=== PATIENT | male | born 1960 | race Caucasian/White ===

== ENCOUNTER 2017-04-24 07:45 | Emergency (ER) | payer OTHER ==
[2017-04-24 08:16] VITALS: BP 106/67
--- NOTE | 2017-04-24 08:53 | RAD ---
HISTORY: Cough COMPARISONS: February 27, 2016, August 02, 2012 VIEWS: 4: Frontal dual-energy and lateral views of the chest. FINDINGS: CARDIOMEDIASTINAL SILHOUETTE: The cardiomediastinal silhouette is normal. GUERITA: The guerita are normal. PLEURA: The costophrenic angles are sharp. No pleural abnormalities are noted. LUNG PARENCHYMA: There is stable nodular density of the left midlung. The stability is consistent with benign nodule ABDOMEN: The upper abdomen is clear. There is no subphrenic gas. BONES AND SOFT TISSUES: No bone or soft tissue abnormalities are noted. OTHER: None. IMPRESSION: NO ACTIVE CARDIOPULMONARY DISEASE.
[2017-04-24] MEDS ORDERED: Albuterol/Ipratropium NEB.SOL* Albuterol 2.5 MG/Ipratropium 0.5 MG 3 ML INH ONE (09:13)
--- NOTE | 2017-04-24 09:47 | UC ---
Respiratory Complaint HPI - HPI Summary HPI Summary: 56 yo c/o cough last two weeks. Took z-behzad x 1, "didn't help." PCP (Dr Gresham ) escribed levofloxacin yesterday, took one dose. Last night coughed all night. Concerned about possible pneumonia. Had pneumonia last year - hospitalized. No hemoptysis perse. Feels like needs to cough something up. No fever / chills reported. No rash. - History of Current Complaint Chief Complaint: UCGeneralIllness Stated Complaint: URI Time Seen by Provider: 04/24/17 08:18 Hx Obtained From: Patient - Allergies/Home Medications Allergies/Adverse Reactions: Allergies Allergy/AdvReac Type Severity Reaction Status Date / Time Formaldehyde Allergy Severe Hives Verified 04/24/17 08:03 Home Medications: Home Medications Levofloxacin [Levaquin] 500 mg PO 04/24/17 [History Confirmed 04/24/17] PMH/Surg Hx/FS Hx/Imm Hx Previously Healthy: No - see hpi Other History Of: Negative For: HIV, Hepatitis B, Hepatitis C, Anticoagulant Therapy - Surgical History Surgical History: Yes Surgery Procedure, Year, and Place: LEFT KIDNEY REMOVED @ . OSTEOMYLITIS RIGHT ANKLE @ 7 yrs old. RIGHT WRIST PROXIMAL ROW CARPECTOMY-[facility]. 1980-RIGHT WRIST SURGERY-X 2. KNEE SURGERY FOR MENISCUS. LEFT shoulder ROTATOR CUFF REPAIR - Family History Known Family History: Positive: Cardiac Disease, Hypertension Negative: Diabetes - Social History Alcohol Use: Rare Substance Use Type: None Smoking Status (MU): Former Smoker Amount Used/How Often: 1/2 PPD X OFF AND ON 12-13 YEARS When Did the Patient Quit Smoking/Using Tobacco: 25 years ago - Immunization History Most Recent Influenza Vaccination: last year Most Recent Tetanus Shot: unknown Most Recent Pneumonia Vaccination: never Review of Systems Constitutional: Negative, Fatigue Skin: Negative Eyes: Negative ENT: Sore Throat, Sinus Congestion Respiratory: Cough Cardiovascular: Negative Gastrointestinal: Negative Genitourinary: Negative Motor: Negative Neurovascular: Negative Musculoskeletal: Negative Neurological: Negative Psychological: Negative Is Patient Immunocompromised?: No All Other Systems Reviewed And Are Negative: Yes Physical Exam Triage Information Reviewed: Yes Appearance: Well-Nourished Vital Signs: Initial Vital Signs Temp 98.6 F 04/24/17 08:06 Pulse 79 04/24/17 08:06 Resp 20 04/24/17 08:06 BP 106/67 04/24/17 08:06 Pulse Ox 97 04/24/17 08:06 Vital Signs Reviewed: Yes Eye Exam: Normal ENT: Positive: Pharynx normal, TM dull Neck exam: Normal Neck: Positive: Supple Respiratory Exam: Other - breath sounds equal + exp wheezing bibasilar. + rhonchi. No rtx. No rash. Respiratory: Positive: Wheezing Cardiovascular Exam: Normal Cardiovascular: Positive: RRR, No Murmur, Pulses Normal Abdominal Exam: Normal Musculoskeletal Exam: Normal Neurological Exam: Normal - grossly normal Psychological Exam: Normal - conversing easily and appropriately Skin Exam: Normal UC Diagnostic Evaluation - Laboratory O2 Sat by Pulse Oximetry: 97 Respiratory Course/Dx - Course Course Of Treatment: DuoNeb x 1. D/w pt xray report, need for f/u. (benign nodule noted). Questions as posed answered to the best of my ability. - Differential Dx/Diagnosis Provider Diagnoses: bronchitis. wheezing Discharge - Discharge Plan Condition: Improved Disposition: HOME Prescriptions: Albuterol 2.5MG/3ML (0.083%)* [Ventolin 2.5 MG/3 ML NEB.DEVAN*] 2.5 mg INH Q6H #1 box Albuterol HFA INHALER* [Ventolin HFA Inhaler*] 1 - 2 puff INH Q4H PRN #1 mdi PRN Reason: Wheezing predniSONE TAB* [Deltasone TAB*] 20 mg PO DAILY #13 tab Patient Education Materials: Acute Bronchitis (ED), Wheezing (ED) Forms: *Work Release Referrals: Sim Gresham MD [Primary Care Provider] - Additional Instructions: Continue antibiotic as recommended by Dr. Gresham. Call for recheck appointment next week. Seek medical attention for worse or new problems.
== END 2017-04-24 09:45 | disposition home or self-care (01) ==
LOC: UCEAST 07:45
DX: J40 Bronchitis, not specified as acute or chronic (principal); R06.2 Wheezing
CPT/HCPCS: 71020; 99212; A9270-GY; G0463

== ENCOUNTER 2017-12-14 08:26 | Day surgery (SDC) | payer OTHER ==
[~2017-12-14 08:26] MED LIST: Buffered Lidocaine 0.9% SYRIN* 5 ML/SYR SYRINGE INTRADERM ONE; Famotidine IV* 10 MG/ML 2 ML (20 mg) IV ONE
[2017-12-14] MEDS ORDERED: Famotidine IV* 10 MG/ML 2 ML (20 mg) ONE (08:45)
[2017-12-14] MEDS ORDERED: ceFAZolin 2 GM PREMIX (*) 2 GM/50 ML BAG IVPB ONE (08:45)
[2017-12-14] MEDS ORDERED: EPINEPHRINE 1 MG/ML 1 ML VIAL ONE (11:45)
[2017-12-14] MEDS ORDERED: Midazolam* 1 MG/ML 5 ML VIAL (5 MG) ONE (11:51)
[2017-12-14] MEDS ORDERED: fentaNYL* 50 MCG/ML 2 ML VIAL (100 MCG VIAL) ONE ×2 (11:56→12:14)
[2017-12-14] MEDS ORDERED: Bupivacaine 0.5% PF 10 ML VIAL INJ ONE (11:59)
[2017-12-14] MEDS ORDERED: Propofol* 10 MG/ML 20 ML BTL IV PUSH ONE (12:15)
[2017-12-14] MEDS ORDERED: Ketorolac INJ* 30 MG/ML 1 ML VIAL ONE (12:15)
[2017-12-14] MEDS ORDERED: Lidocaine 2% PF * 5 ML VIAL ONE (12:15)
[2017-12-14] MEDS ORDERED: DiMENhydriNATE IV* 50 MG/ML VIAL ONE (12:15)
[2017-12-14] MEDS ORDERED: Dexamethasone IV* 4 MG/ML 1 ML (4 MG) ONE (12:15)
[2017-12-14] MEDS ORDERED: Naloxone* 0.4 MG/ML 1 ML VIAL IV PRN (13:05)
[2017-12-14] MEDS ORDERED: Ondansetron INJ* 2 MG/ML VIAL IV PRN (13:05)
[2017-12-14] MEDS ORDERED: oxyCODONE TAB* 5 MG TAB PO PRN (13:05)
[2017-12-14] MEDS ORDERED: Acetaminophen TAB* 325 MG PO PRN (13:05)
[2017-12-14] MEDS ORDERED: HYDROmorphone INJ* 0.5 MG/0.5 ML SYRINGE IV PRN (13:05)
[2017-12-14] MEDS ORDERED: oxyCODONE/Acetamin 5/325 MG* TAB ONE (14:09)
[2017-12-14 14:11] VITALS: BP 118/93
--- NOTE | 2017-12-16 21:32 | OP ---
DATE OF OPERATION: 12/14/17 - [facility] DATE OF : 60 SURGEON: Jesus Sanabria MD DIGITAL ACCOUNT COORDINATOR: JAI Munoz. A physician ice cream freezer assistant was required for the length of the procedure and for assistance with positioning, knee manipulation, instrumentation and closure. ANESTHESIOLOGIST: Nicolasa Ramsay MD. ANESTHESIA: General anesthesia, 30 cc of local anesthesia with Marcaine at 0.5% . PRE-OP DIAGNOSIS: Right knee posterior root medial meniscus tear. POST-OP DIAGNOSES: 1. Right knee posterior root medial meniscus tear. 2. Right knee anterior horn lateral meniscal tear. 3. Right knee medial plica, enlarged. 4. Articular cartilage lesions right knee, patella, and trochlear groove. OPERATIVE PROCEDURES: 1. Right knee arthroscopic partial medial meniscectomy. 2. Right knee arthroscopic partial lateral meniscectomy. 3. Right knee arthroscopic removal of medial plica. 4. Right knee arthroscopic chondroplasty patella and trochlear groove. ANTIBIOTICS: Ancef 2 g IV. IV FLUIDS: See anesthesia note. SKIN TO SKIN TIME: 21 minutes. TOURNIQUET TIME: 21 minutes at 300 mmHg. ARTHROSCOPIC FLUID UTILIZED: 3 L total. One bag containing 3 L of fluid was utilized. SPECIMEN: None. IMPLANTS: None. COMPLICATIONS: None. ESTIMATED BLOOD LOSS: Zero cc. 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 See the history and physical for all details relevant. The patient responded insufficiently to nonoperative management and opted for surgery. We discussed risks and potential complications of surgery. I discussed how I am guarded regarding optimism about the medium and long-term outcome with these posterior root tears because they significantly defunctionalized the meniscus even after the tear stops hurting postoperatively. The patient understood. DESCRIPTION OF PROCEDURE: In preoperative holding, the patient signed a written consent. The operative extremity was marked in preoperative holding. The patient was taken back to the operating room and placed supine on the operating room table, sedated and intubated. A tourniquet was placed around the proximal right thigh. A circumferential thigh springer was placed around the distal right thigh. The right knee and lower extremity were prepped and draped. A surgical time-out was performed. I established an anterolateral knee arthroscopy portal using standard technique. I commenced by diagnostic arthroscopy. The patient had diffuse grade 1 and 2 injury in the patellofemoral compartment, under surface of the patella and the trochlear groove. I noted that the patient had an exuberant medial plica present. I then dropped down to the medial and lateral compartments. Visualization of the medial compartment demonstrated as expected a root tear of the posterior root of the medial meniscus. I established an anteromedial knee arthroscopy portal under direct visualization. I debrided the medial meniscus back to a stable rim of tissue using arthroscopic biters and an arthroscopic shaver. I probed the meniscus and found it to be stable. I visualized from both anterolateral and anteromedial portals. I next continued with my diagnostic arthroscopy. There was some synovitis anteriorly and I debrided that as well as the ligamentum mucosum. I then moved to the lateral compartment. There was significant fraying and some small amount of tearing in the anterior horn of the lateral meniscus. I debrided this with an arthroscopic shaver. I then proceeded to return to the patellofemoral compartment. With an arthroscopic shaver, I debrided lightly the worn articular cartilage surface looking for any unstable lesions. There were not any. I then used the arthroscopic shaver to remove the enlarged medial plica. I established a second anteromedial portal during this case for ease of instrumentation to avoid any injury intraarticular. Fluid and instruments were removed from the knee. The skin incisions were closed with [id number] 12 stitches using nylon 3-0 suture. Local anesthetic, 30 cc of 0.5% Marcaine was infused into the subcutaneous tissues about the skin incisions. Xeroform, 4x4s, ABD, Gurmeet bandage from foot to proximal thigh. Cooling unit on the knee. The patient was awakened and taken to the PACU. DISPOSITION: The patient is weightbearing as tolerated and will use the crutches as needed. He was given wound care instructions. He will take aspirin 325 mg p.o. b.i.d. x2 weeks postoperatively for DVT prophylaxis and Percocet p.r.n. He will start physical therapy immediately. He will follow up in clinic with one of the PA's in my office in 10 to 14 days postoperatively. He will then see me in the office 6 weeks postoperatively and he is welcome to follow up by telephone at any time as he has my cellphone number. [id number]/[facility] #: [id number] BARB
== END 2017-12-14 14:16 | disposition home or self-care (01) ==
LOC: OR 08:26
PROVIDERS: ATTEND Orthopaedic Surgery
DX: S83.241A Other tear of medial meniscus, current injury, right knee, initial encounter (principal); S83.281A Other tear of lateral meniscus, current injury, right knee, initial encounter; W18.49XA Other slipping, tripping and stumbling without falling, initial encounter; Y93.89 Activity, other specified; Y92.481 Parking lot as the place of occurrence of the external cause; Y99.0 Civilian activity done for income or pay; M67.51 Plica syndrome, right knee; K21.9 Gastro-esophageal reflux disease without esophagitis; E03.9 Hypothyroidism, unspecified; E66.9 Obesity, unspecified; E78.5 Hyperlipidemia, unspecified; Z87.891 Personal history of nicotine dependence
CPT/HCPCS: A9270-GY; J0690; J1100; J1240; J1885; J2250; J2704; J3010

== ENCOUNTER 2018-08-19 07:50 | Emergency (ER) | payer OTHER ==
[2018-08-19 08:04] VITALS: BP 146/86
--- NOTE | 2018-08-19 08:16 | UC ---
Respiratory Complaint HPI - HPI Summary HPI Summary: 57-year-old male comes in with chief complaint of upper respiratory tract infection symptoms for 4 days. Started as a runny nose mild sore throat with some body aches. Gradually he is developed chest congestion. This morning when he woke up he was coughing up yellow and green sputum and he was having shortness of breath. It reminded him of in the past when he had a pneumonia. He has had some wheezing. Once he got up and coughed up sputum he felt improved. Does not feel short of breath at this moment. He has had some chills no measured fever. - History of Current Complaint Chief Complaint: UCRespiratory Stated Complaint: CONGESTION COUGH Time Seen by Provider: 08/19/18 08:00 Pain Intensity: 6 - Allergies/Home Medications Allergies/Adverse Reactions: Allergies Allergy/AdvReac Type Severity Reaction Status Date / Time formaldehyde Allergy Hives Verified 12/14/17 08:55 PMH/Surg Hx/FS Hx/Imm Hx Previously Healthy: Yes Endocrine History: Hypothyroidism Respiratory History: Pneumonia Other History Of: Negative For: HIV, Hepatitis B, Hepatitis C, Anticoagulant Therapy - Surgical History Surgical History: Yes Surgery Procedure, Year, and Place: LEFT KIDNEY REMOVED @ . OSTEOMYLITIS RIGHT ANKLE @ 7 yrs old. RIGHT WRIST PROXIMAL ROW CARPECTOMY-[facility]. 1980-RIGHT WRIST SURGERY-X 2. KNEE SURGERY FOR MENISCUS LEFT. KIDNEY STONE REMOVED. LEFT shoulder ROTATOR CUFF REPAIR. THROAT SURGERY TO REMOVE SALIVARY GLANDS. FIXED NERVE ON LEFT POINTER FINGER - Family History Known Family History: Positive: Cardiac Disease, Hypertension Negative: Diabetes - Social History Alcohol Use: Rare Substance Use Type: None Smoking Status (MU): Former Smoker Amount Used/How Often: 1/2 PPD X OFF AND ON 12-13 YEARS Have You Smoked in the Last Year: No When Did the Patient Quit Smoking/Using Tobacco: 25 years ago - Immunization History Most Recent Influenza Vaccination: last year Most Recent Tetanus Shot: unknown Most Recent Pneumonia Vaccination: never Review of Systems All Other Systems Reviewed And Are Negative: Yes Constitutional: Positive: Chills Skin: Positive: Negative Eyes: Positive: Negative ENT: Positive: Sore Throat, Nasal Discharge, Sinus Congestion Respiratory: Positive: Shortness Of Breath, Cough, Other - wheezing Cardiovascular: Positive: Negative Gastrointestinal: Positive: Negative Motor: Positive: Negative Neurovascular: Positive: Negative Musculoskeletal: Positive: Negative Neurological: Positive: Negative Psychological: Positive: Negative Is Patient Immunocompromised?: No Physical Exam Triage Information Reviewed: Yes Appearance: Well-Appearing, No Pain Distress, Well-Nourished Vital Signs: Initial Vital Signs Temp 97.9 F 08/19/18 07:59 Pulse 88 08/19/18 07:59 Resp 18 08/19/18 07:59 BP 146/86 08/19/18 07:59 Pulse Ox 99 08/19/18 07:59 Vital Signs Reviewed: Yes Eye Exam: Normal Eyes: Positive: Conjunctiva Clear ENT: Positive: Pharyngeal erythema, Nasal congestion, Nasal drainage, TMs normal Neck exam: Normal Neck: Positive: Supple Respiratory: Positive: No respiratory distress, No accessory muscle use, Rhonchi Cardiovascular: Positive: RRR Musculoskeletal Exam: Normal Musculoskeletal: Positive: Strength Intact, ROM Intact Neurological Exam: Normal Neurological: Positive: Alert, Muscle Tone Normal Psychological Exam: Normal Psychological: Positive: Age Appropriate Behavior Skin Exam: Normal Respiratory Course/Dx - Course Course Of Treatment: DISCUSSED VIRAL VERSES BACTERIAL INFECTION AND THE ROLE OF ANTIBIOTICS. THE PATIENT WISHES TO BE ON ANTIBIOTICS AT THIS TIME. - Differential Dx/Diagnosis Provider Diagnosis: Bronchitis with bronchospasm Discharge - Sign-Out/Discharge Documenting (check all that apply): Patient Departure All imaging exams completed and their final reports reviewed: No Studies - Discharge Plan Condition: Stable Disposition: HOME Prescriptions: Albuterol HFA INHALER* [Ventolin HFA Inhaler*] 2 puff INH Q4H PRN #1 mdi PRN Reason: Wheezing Azithromyxin SHAYE (NF) [Z-Shaye (Zithromax) 250 mg tabs #6] 2 tab PO .TODAY, THEN 1 DAILY #6 tab Patient Education Materials: Acute Bronchitis (ED), Bronchospasm (ED) Referrals: Sim Gresham MD [Primary Care Provider] - Additional Instructions: FOLLOW UP WITH YOUR DOCTOR IF NOT COMPLETELY IMPROVED. GET RECHECKED FOR ANY WORSENING OF YOUR CONDITION OR QUESTIONS OR CONCERNS. - Billing Disposition and Condition Condition: STABLE Disposition: Home
== END 2018-08-19 08:22 | disposition home or self-care (01) ==
LOC: UCEAST 07:50
DX: J40 Bronchitis, not specified as acute or chronic (principal); J98.01 Acute bronchospasm; Z87.891 Personal history of nicotine dependence; Z87.01 Personal history of pneumonia (recurrent); Z88.8 Allergy status to other drugs, medicaments and biological substances
CPT/HCPCS: 99212; G0463

== ENCOUNTER 2018-09-20 10:42 | Inpatient (IN) | payer OTHER ==
--- NOTE | 2018-09-20 11:06 | ED ---
Abdominal Pain/Male - HPI Summary HPI Summary: A 57 y/o male presents to [facility] with a chief complaint of worsened abdominal pain over the past few days. The patient reports that he was hospitalized for four days with diverticulitis and was discharged on 09/14/18. At triage he rated his pain as a 6/10 in severity. The patient also reports right flank pain , nausea, fatigue, dark stool, dysuria and cough. His cough started one week [employer]ARM[employer]. He denies diarrhea, fever, diaphoresis, runny nose, SOB, diarrhea, hematuria, or swelling in his legs. The patient reports taking cipro flagyl. Hx of kidney stones, he only has one kidney. - History of Current Complaint Chief Complaint: EDAbdPain Stated Complaint: STOMACH ISSUES PER PT Time Seen by Provider: 09/20/18 10:54 Hx Obtained From: Patient Onset/Duration: Sudden Onset, Lasting Days, Still Present Timing: Constant, Lasting Days Severity Initially: Moderate Severity Currently: Moderate Pain Intensity: 6 Pain Scale Used: 0-10 Numeric Location: Diffuse - lower abdominal pain (near his diverticulitis) Radiates: No Character: Other: - unable to describe Aggravating Factor(s): Nothing Alleviating Factor(s): Nothing Associated Signs And Symptoms: Positive: Negative - runny nose, SOB. Negative: Fever - Allergies/Home Medications Allergies/Adverse Reactions: Allergies Allergy/AdvReac Type Severity Reaction Status Date / Time No Known Allergies Allergy Verified 09/20/18 10:45 PMH/Surg Hx/FS Hx/Imm Hx Endocrine/Hematology History: Reports: Hx Thyroid Disease - HYPOTHYROID Denies: Hx Anticoagulant Therapy, Hx Diabetes, Hx Systemic Lupus Erythematosus Cardiovascular History: Reports: Hx Hypercholesterolemia Denies: Hx Congestive Heart Failure, Hx Deep Vein Thrombosis, Hx Hypertension , Hx Myocardial Infarction, Hx Pacemaker/ICD, Other Cardiovascular Problems/ Disorders Respiratory History: Reports: Other Respiratory Problems/Disorders - HX OF PNEUMONIA IN THE PAST Denies: Hx Asthma, Hx Chronic Obstructive Pulmonary Disease (COPD), Hx Lung Cancer, Hx Pneumonia, Hx Pulmonary Embolism GI History: Reports: Hx Gastroesophageal Reflux Disease - NO MEDICATION FOR, Other GI Disorders - HX OF DIVERTICULITIS Denies: Hx Gall Bladder Disease, Hx Gastrointestinal Bleed, Hx Ulcer, Hx Urosepsis History: Reports: Hx Kidney Stones - HX OF, Hx Renal Disease - abnormal gfr, Other Problems/Disorders - ONE KIDNEY REMOVED AT AGE 2 WEEKS OLD Denies: Hx Dialysis Musculoskeletal History: Reports: Hx Arthritis - WRIST AND OTHER AREAS, Other Musculoskeletal History - DDD//RIGHT WRIST- SURGERY-PROXIMAL ROW CARPECTOMY Denies: Hx Rheumatoid Arthritis, Hx Scoliosis Sensory History: Denies: Hx Contacts or Glasses, Hx Hearing Aid Opthamlomology History: Denies: Hx Contacts or Glasses Neurological History: Reports: Other Neuro Impairments/Disorders - 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 OSTEOMYLITIS RIGHT ANKLE @ 7 yrs old. RIGHT WRIST PROXIMAL ROW CARPECTOMY-[facility]. 1981-RIGHT WRIST SURGERY-X 2. KNEE SURGERY FOR MENISCUS LEFT. KIDNEY STONE REMOVED. LEFT shoulder ROTATOR CUFF REPAIR. THROAT SURGERY TO REMOVE SALIVARY GLANDS. FIXED NERVE ON LEFT POINTER FINGER Hx Anesthesia Reactions: No - Immunization History Date of Tetanus Vaccine: Unk Date of Influenza Vaccine: Fall 2013 Infectious Disease History: No Infectious Disease History: Denies: Traveled Outside the [place] in Last 30 Days - Family History Known Family History: Positive: Cardiac Disease, Hypertension Negative: Diabetes - Social History Alcohol Use: Weekly Substance Use Type: Reports: None Hx Tobacco Use: No Smoking Status (MU): Former Smoker Amount Used/How Often: 1/2 PPD X OFF AND ON 12-13 YEARS Have You Smoked in the Last Year: No Review of Systems Negative: Fever, Chills, Skin Diaphoresis Negative: Nasal Discharge Negative: Chest Pain Positive: Cough. Negative: Shortness Of Breath Positive: Abdominal Pain, Nausea, Other - positive: black stool. Negative: Vomiting, Diarrhea Positive: dysuria, flank pain. Negative: hematuria Negative: Edema All Other Systems Reviewed And Are Negative: Yes Physical Exam - Summary Physical Exam Summary: Constitutional: Well-developed, Well-nourished, Alert. (-) Distressed Skin: Warm, Dry HENT: Normocephalic; Atraumatic Eyes: Conjunctiva normal Neck: Musculoskeletal ROM normal neck. (-) JVD, (-) Stridor, (-) Tracheal deviation Cardio: Rhythm regular, rate normal, Heart sounds normal; Intact distal pulses; The pedal pulses are 2+ and symmetric. Radial pulses are 2+ and symmetric. (-) Murmur Pulmonary/Chest wall: Effort normal. (-) Respiratory distress, (-) Wheezes, (-) Rales Abd: Soft, Healed abdominal wall incision, Abdominal tenderness worse in suprapubic and epigastric regions, No CVA tenderness, (-) Distension, (-) Guarding, (-) Rebound Musculoskeletal: (-) Edema Lymph: (-) Cervical adenopathy Neuro: Alert, Oriented x3 Psych: Mood and affect Normal Triage Information Reviewed: Yes Vital Signs On Initial Exam: Initial Vitals Temp Pulse Resp BP Pulse Ox 97 F 85 14 119/78 94 09/20/18 10:46 09/20/18 10:46 09/20/18 10:46 09/20/18 10:46 09/20/18 10:46 Vital Signs Reviewed: Yes Diagnostics - Vital Signs Vital Signs Temp Pulse Resp BP Pulse Ox 09/20/18 10:46 97 F 85 14 119/78 94 - Laboratory Result Diagrams: 09/20/18 12:29 09/20/18 12:29 Lab Statement: Any lab studies that have been ordered have been reviewed, and results considered in the medical decision making process. - Radiology CXR Radiology Interpretation Completed By: Radiologist Summary of Radiographic Findings: NO ACTIVE CARDIOPULMONARY DISEASE. ED physician has reviewed this imaging report. - CT abdomen/pelvis CT Interpretation Completed By: Radiologist Summary of CT Findings: PERFORATED DIVERTICULITIS. FATTY INFILTRATION OF THE LIVER. ABSENT LEFT KIDNEY. ED physician has reviewed this imaging report. - EKG 11:37 Cardiac Rate: NL - 76 bpm EKG Rhythm: Sinus Rhythm Summary of EKG Findings: Normal sinus rhythm at 76 bpm, LAD, normal DE, normal QRS, nonspecific QTc, normal axis, normal ST, normal T-waves, nonspecific EKG. Re-Evaluation - Re-Evaluation First Eval Re-Evaluation Time: 14:04 Change: Unchanged Comment: Discussed results, Pt has normal Vital signs Abdominal Pain Male Course/Dx - Course Course Of Treatment: A 57 y/o male presents to [facility] with a chief complaint of worsened abdominal pain over the past few days. The patient reports that he was hospitalized for four days with diverticulitis and was discharged on 09/14/18. The physical exam revealed a healed abdominal wall incision, Abdominal tenderness worse in suprapubic and epigastric regions, No CVA tenderness. EKG at 11:37 showed Normal sinus rhythm at 76 bpm, LAD, normal DE, normal QRS, nonspecific QTc, normal axis, normal ST, normal T-waves, nonspecific EKG. Bloodwork and chemistries obtained and are WNL. CXR impression: NO ACTIVE CARDIOPULMONARY DISEASE. In the ED course the patient was given Iodixanol IV, Zosyn IV and Sodium chloride IV. Abdomen/pelvis CT impression: PERFORATED DIVERTICULITIS. FATTY INFILTRATION OF THE LIVER. ABSENT LEFT KIDNEY. Surgery was notified about the patient and discussed case with Dr. Springer, hospitalist, who accepted the patient for admission. - Diagnoses Provider Diagnoses: Perforated diverticulum - Provider Notifications Time Discussed With Above Provider: 13:56 Instructed by Provider To: Other - Physician Fws Faculty Assistant from General surgery team will look at CT scan Discharge - Sign-Out/Discharge Documenting (check all that apply): Patient Departure - admit Patient Received Moderate/Deep Sedation with Procedure: No - Discharge Plan Condition: Fair Disposition: ADMITTED TO [facility] - Billing Disposition and Condition Condition: FAIR Disposition: Admitted to [facility] - Attestation Statements Document Initiated by Adeola: Yes Documenting Scribe: Yvan Loredo Provider For Whom Cathiibe is Documenting (Include Credential): Shiela Dee MD Scribe Attestation: Yvan Dickey, scribed for Shiela Gomez MD on 09/20/18 at 2238. Scribe Documentation Reviewed: Yes Provider Attestation: The documentation as recorded by the Yvan connors accurately reflects the service I personally performed and the decisions made by ia, Shiela oGmez MD Status of Scrprateek Document: Viewed Consult Consult: At 02:[address] Zuleta, general surgeon, who recommended admission. At 02:[address] Springer, hospitalist, who accepted the patient for admission.
[2018-09-20] MEDS ORDERED: NS 0.9% 1000 ML** 1,000 ML IV ONE (11:11)
[2018-09-20 12:41] LABS: ABS Basophils 0.1 10^3/ul (0-0.2); ABS Eosinophils 0.1 10^3/ul (0-0.6); ABS Lymphocytes 1.8 10^3/ul (1.0-4.8); ABS Monocytes 0.8 10^3/ul (0-0.8); ABS Neutrophils 5.7 10^3/ul (1.5-7.7); ABS Nucleated RBC 0 10^3/ul; Eosinophil % 1.6 %; Hematocrit 41 % (36-46); Hemoglobin 13.7 g/dL (14.0-18.0); Lymphocyte % 20.9 %; Mean Corpuscular HGB Conc 34 g/dL (31-36); Mean Corpuscular Hemoglobin 27 pg (27-31); Mean Corpuscular Volume 79 fL (80-94); Mean Platelet Volume 7.6 fL (7.4-10.4); Nucleated Red Blood Cells % 0.1; Platelet Count 306 10^3/uL (150-450); Red Blood Count 5.16 10^6 /uL (4.18-5.48); Red Cell Distribution Width 14 % (10.5-15); White Blood Count 8.5 10^3/uL (3.5-10.8)
[2018-09-20 13:13] LABS: Troponin I 0.01 ng/mL (<0.04)
[2018-09-20 13:15] LABS: Albumin 3.7 g/dL (3.2-5.2); Albumin/Globulin Ratio 1.3 (1-3); BUN/Creatinine Ratio 12.5 (8-20); C Reactive Protein 22.55 mg/L (<8.01); Calcium 8.5 mg/dL (8.6-10.3); EGFR African American 81.8 (>60); EGFR Non-African American 67.6 (>60); Globulin 2.9 g/dL (2-4); Total Bilirubin 0.3 mg/dL (0.2-1.0); Total Protein 6.6 g/dL (6.4-8.9)
[2018-09-20 13:24] LABS: Potassium 4.2 mmol/L (3.5-5.0)
[2018-09-20] MEDS ORDERED: Iodixanol* (CONTRAST) 320 MG/ML 100 ML SDV IV ONE (13:29)
[2018-09-20] MEDS ORDERED: ED Piperacillin/Tazobac 3.375 3.375 GM/100 ML PREMIX.SET IVPB ONE (14:00)
[2018-09-20] MEDS ORDERED: Morphine INJ* 2 MG/ML 1 ML SYRINGE (TWO MG - NEW SYRINGE VERSION) IV PRN (16:23)
[2018-09-20] MEDS ORDERED: Cyclobenzaprine TAB* 10 MG PO PRN (16:43)
[2018-09-20] MEDS ORDERED: Albuterol HFA INHALER* 8 gm MDI INH PRN (16:43)
[2018-09-20] MEDS ORDERED: Piperacillin/Tazobac ADVAN(*) 3.375 GM in NS 0.9% 100 ML* 100 ML IVPB ONE (16:45)
[2018-09-20] MEDS ORDERED: PROCHLORPERAZINE INJ 5 MG/ML 2 ML VIAL IV PRN (16:45)
[2018-09-20] MEDS ORDERED: Zosyn per Pharmacy* NOTE FOLLOW UP SCH (17:00)
[2018-09-20] MEDS: Atorvastatin* 10 MG TAB PO SCH (17:41)
[2018-09-20] MEDS: NS 0.9% 1000 ML** 1,000 ML IV SCH (17:42)
[2018-09-20] MEDS ORDERED: ZOSYN 3.375 GM Q8H per EXTENDED INFUSION IVPB SCH ×2 (18:30)
--- NOTE | 2018-09-20 18:48 | HP ---
HISTORY AND PHYSICAL: ADDENDUM: ASSESSMENT AND PLAN: 1. Dark stools. The patient is reporting that he has been having dark stools since he left the hospital. During his last hospitalization, he did have bright red blood in his stool on one instance. It was associated with a small drop in his hemoglobin, but then was stabilized the next day. It is likely that that was related to straining with a hard stool and possibly an internal hemorrhoid. With his consistent dark stool, his hemoglobin is 12.7 and stable according to the hemoglobin during his last admission. A stool Hemoccult can be ordered to evaluate if the dark stool is a lower gastrointestinal bleed ____ _ quite likely that it is due to his extensive diverticulosis in his sigmoid colon. 2. Hypothyroidism. Continue home Synthroid. 3. Hyperlipidemia. Continue home Lipitor. 4. FEN: N.p.o. as described above. We will advance diet as tolerated if surgery is not involved. 5. DVT prophylaxis: Heparin subcu t.i.d. in the event that he needs surgery. DVT risk score is a 2. Additionally, the patient will be ambulating ad fabrizio. 6. Code status is full code. TIME SPENT: Approximately 45 minutes was spent on this admission, approximately half this time was spent at bedside evaluating the patient. This case has been reviewed by my attending, Dr. Ambrosio Springer, and he agrees with this plan of care. JAI KNOX [id number]/[facility] #: [id number] BARB
--- NOTE | 2018-09-20 20:18 | CONS ---
CC: Dr. Sim Gresham at [facility] * SURGICAL CONSULT NOTE: DATE OF CONSULT: 09/20/18 ATTENDING SURGEON: Dr. Joellen Zuleta. CHIEF COMPLAINT: Diverticulitis with perforation. HISTORY OF PRESENT ILLNESS: This is a 57-year-old male recently admitted to [facility] from 09/11/18 through 09/14/18 for uncomplicated diverticulitis. He initially received IV Cipro and Flagyl with improvement clinically and discharged on oral Cipro and Flagyl on 09/14/18. The first couple of days, he felt okay. He was seen in his primary care office on Sunday. On Sunday, he returned to work. On Sunday, he began to feel some vague abdominal symptoms that he attributed to the antibiotics. , he had increased abdominal pain in the lower abdomen just to the left of midline. This morning, he stated that he had increased pain to the extent that he felt he needed to come to the emergency room. He denies fever or chills. He has had some slight anorexia, but no nausea or vomiting. He states that his stools have been dark at times and also with mucus present. There has been no meet blood per rectum. He had 1 prior episode of diverticulitis in 2014. He has had 1 colonoscopy in 2009, which was done secondary to bleeding, but with normal findings at that time. He is status post left nephrectomy as an via a left paramidline incision. He currently has nonobstructing right nephrolithiasis in the calyx. The remainder of his medical history is outlined in his recent admission history and physical including other medications, allergies, social and family history. PHYSICAL EXAM: Height 5 feet 9 inches, weight 270 pounds, BMI 40. Temperature 98.1, blood pressure 109/69, pulse 79, respirations ranging from 13 to 20, room air saturation 97%. General: Well-nourished, morbidly obese male, in no acute distress. He is a bit agitated about being back in the hospital. Skin: Warm and dry. No suspicious rashes or lesions. Heart: Regular rate and rhythm. Lungs: Clear to auscultation. Abdomen: Obese. Left vertical paramidline incision from prior surgery. He appears to also have some diastasis recti. Bowel sounds present. Abdomen is soft with generalized tenderness in the lower abdomen with referred tenderness, though no rigidity. There is possibly some mild guarding to the left of midline in the lower abdomen. DIAGNOSTIC STUDIES/LAB DATA: White blood cell count 8500 without shift, hemoglobin 13.7. Lactic acid is normal at 0.8. CRP is 23 (down from 99 on previous admission). Lipase is normal at 18. CT scan was reviewed personally and has also been reviewed by Dr. Zuleta. It shows an area of inflammation in the sigmoid colon, corresponds to the same area on recent admission. There is now some free air outside of the colon consistent with perforation. There is no well-defined abscess at this point. IMPRESSION: Diverticulitis, with contained perforation. PLAN: He will be readmitted to the hospitalist service and has already initiated IV Zosyn. We will follow him closely with serial exams. He may need additional imaging. He understands that he may require urgent surgical intervention, but that would likely result in a temporary colostomy. He also may be a candidate for repeat colonoscopy prior to semi-elective sigmoid resection if this current episode resolves. JAI REY [id number]/[facility] #: [id number] BARB
--- NOTE | 2018-09-20 20:59 | HP ---
CC: Dr. Gresham * HISTORY AND PHYSICAL: DATE OF ADMISSION: 09/20/18. PROVIDER: JAI Cruz ATTENDING PROVIDER: Ambrosio Springer MD * (DICTATED BY JAI CRUZ) PRIMARY CARE PHYSICIAN: Dr. Gresham. CHIEF COMPLAINT: Abdominal pain and fatigue. HISTORY OF PRESENT ILLNESS: Onofre Stoll is a 57-year-old white male with past medial history of hypothyroidism, hyperlipidemia, history of nephrectomy, and history of diverticulitis, who presents today with abdominal pain and fatigue x2 days. The patient was recently admitted on 09/11/18 and discharged on 09/14/18 for diverticulitis and has been taking his oral antibiotics. His last dose would have been today. The patient reports that his abdomen was feeling better until yesterday. He began having left lower quadrant pain that was close to his groin and sudden fatigue. He denies fever, chills, or diaphoresis and reports that his abdomen does not feel as badly as it did when he last came to the hospital. He did take his temperature at home and did not have a fever. He does report some nausea starting yesterday that has been intermittent. Denies vomiting. He has noticed that his stools have been very dark, but has not noticed any bright red blood in the toilet. He notices that his abdominal pain gets worse when his bladder is full and then does have some relief of that pain after urination. He has noted some right lower back pain. He denies chest pain and shortness of breath. ED COURSE: When the patient arrived to the emergency department, his vital signs were temperature of 97 degrees Fahrenheit, heart rate of 85, respiratory rate 14, oxygen 94% on room air, blood pressure 119/78. The patient was given 1 L of normal saline and 3.375 g of IV Zosyn. Then, the hospitalist service was contacted for evaluation. PAST MEDICAL HISTORY: 1. History of diverticulitis. 2. Prior history of nephrolithiasis. 3. Hypothyroidism. 4. Hyperlipidemia. 5. Chronic pain with sciatica. 6. Status post nephrectomy. 7. Reactive airway disease. PAST SURGICAL HISTORY: 1. Nephrectomy as a . 2. Multiple orthopedic surgeries including left shoulder and right knee. HOME MEDICATIONS: 1. Ventolin 2 puffs inhaled q.4 hours p.r.n. wheezing. 2. Lipitor 10 mg p.o. daily. 3. Flexeril 10 mg p.o. bedtime p.r.n. pain. 4. Ibuprofen 800 mg p.o. t.i.d. p.r.n. pain. 5. Synthroid 125 mcg p.o. q.a.m. 6. Flagyl 500 mg p.o. t.i.d., 1 day left of this from prior hospital admission. 7. Cipro 500 mg p.o. q.12 hours, 1 day left of this from prior hospital admission. ALLERGIES: No known drug allergies. FAMILY HISTORY: Mother had a history of angina. Father had a history of coronary artery disease including CABG. Father at age 70 of leukemia and mother in her 60s from lung cancer. He has 2 half brothers who had history of stroke. SOCIAL HISTORY: The patient lives with his who is his healthcare proxy. Her phone number should we need it is [phone], her name is Wendy. 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 He has a history of smoking less than 10 years at less than pack per day and quit smoking more than 30 years ago. He only drinks 1 or 2 drinks per week. Denies illicit drug use. REVIEW OF SYSTEMS: An 11-point review of systems was completed and all pertinent positive and negative are in the HPI, otherwise all systems were negative. PHYSICAL EXAMINATION GENERAL: An obese white male, sitting upright comfortably in hospital bed appearing, in no acute distress. HEENT: Head: Normocephalic, atraumatic. Eyes: Pupils are equal and reactive to light. EOMI. Sclerae anicteric. ENT: Mucous membranes are moist. NECK: Supple without JVP. RESPIRATORY: Lungs are clear to auscultation without wheezes, rhonchi or rales. Chest expansion is symmetrical with respirations. CARDIO: Regular rate and rhythm without murmurs, rubs, gallops. ABDOMEN: Obese. Normoactive bowel sounds x4 quadrants. Tenderness to palpation in left lower quadrant and right lower quadrant. No guarding. No referred tenderness. No rebound tenderness. No masses or hepatosplenomegaly palpated. Negative jar sign. EXTREMITIES: No clubbing or edema. NEUROLOGIC: Alert and oriented x3. Strength 5/5 in all extremities. No focal deficit. PSYCH: Mood and affect are euthymic. Pleasant and cooperative. DIAGNOSTIC STUDIES/LAB DATA: White blood cell count 8.5, hemoglobin 13.7, hematocrit 41, platelet count 306. Sodium 136, potassium 4.2, chloride 103, carbon dioxide 28. BUN 14, creatinine 1.12, glucose 102. Lactic acid 0.8. CRP 22.55. Lipase 18, AST 15, ALT 22, alk phos 66, total bili 0.3. CT abdomen and pelvis from 09/20/18, impression: 1. "Perforated diverticulitis. 2. Fatty infiltration of the liver. 3. Absent left kidney." Colon: "Again noted is diverticulitis with pericolic inflammation and change along the sigmoid colon. There is progressed with interval development of more focal inflammatory change of the mesenteric margin of the sigmoid colon with extraluminal gas locally, and a defect in the mucosal enhancement of the colon consistent with perforated diverticulitis." Chest x-ray of 09/20/18, impression: "No active cardiopulmonary disease." No air fluid levels at the diaphragm. EKG 09/20/18, normal sinus rhythm. Rate is 76 beats per minute. Normal axis. No ST changes. No T-wave inversions. Appears similar to study on 09/28/11. ASSESSMENT AND PLAN: This is a 57-year-old white male with past medical history significant for history of diverticulitis, hypothyroidism, and status post nephrectomy, who presents with abdomen pain and fatigue, who was recently discharged for diverticulitis on 09/14/18. He will be admitted inpatient for: 1. Diverticulitis. The patient was on his last day of oral antibiotics from his prior discharge for recent hospitalization for diverticulitis. He did achieve resolution of abdominal pain and nausea during this time, but began feeling abdominal pain again starting yesterday. He additionally has been feeling nauseous intermittently. He checked his temperature at home and did not have fever and has not felt subjective fevers or chills. Today, his vital signs are all within normal limits and his white blood cell count is 8.5 and lactic acid is wnl. He was started on IV Zosyn in the emergency department and this will be continued. The patient will be placed n.p.o. while awaiting for surgical consult. Surgical recommendations are much appreciated. The patient will receive maintenance normal saline during n.p.o. diet. The patient was previously taking Cipro and Flagyl and this can be considered a failed regimen. Abdominal exam is without peritonitis signs at this time. If the patient is not to receive surgery, then diet may be advanced as tolerated. Ordering IV morphine for pain control. The patient has an RCRI, cardiac risk score of 1, which represents a 6%, 30 day risk of , IA, or cardiac arrest. 2. Dark stools. The patient is reporting that he has been having dark stools since he left the hospital. During his last hospitalization, he did have bright red blood in his stool on one instance. It was associated with a small drop in his hemoglobin, but then was stabilized the next day. It is likely that that was related to straining with a hard stool and possibly an internal hemorrhoid. With his consistent dark stool, his hemoglobin is 12.7 and stable according to the hemoglobin during his last admission. A stool Hemoccult can be ordered to evaluate if the dark stool is a lower gastrointestinal bleed which is possible given his extensive diverticulosis in his sigmoid colon. 3. Hypothyroidism. Continue home Synthroid. 4. Hyperlipidemia. Continue home Lipitor. 5. FEN: N.p.o. as described above. We will advance diet as tolerated if surgery is not involved. 6. DVT prophylaxis: Heparin subcu t.i.d. in the event that he needs surgery. DVT risk score is a 2. Additionally, the patient will be ambulating ad fabrizio. 7. Code status is full code. TIME SPENT: Approximately 45 minutes was spent on this admission, approximately half this time was spent at bedside evaluating the patient. This case has been reviewed by my attending, Dr. Ambrosio Springer, and he agrees with this plan of care. JAI CRUZ [id number]/[facility] #: [id number] Carlos [id number]/[facility] #: [id number] BARB
[2018-09-20] MEDS: Heparin VIAL(*) 5000 UNITS/ML VIAL (FIVE THOUSAND) SUBCUT SCH (21:55)
[2018-09-21] MEDS: ZOSYN 3.375 GM Q8H per EXTENDED INFUSION IVPB SCH ×6 (01:00→16:12)
[2018-09-21] MEDS: Levothyroxine TAB* 125 MCG TAB PO SCH (06:40)
[2018-09-21] MEDS: Heparin VIAL(*) 5000 UNITS/ML VIAL (FIVE THOUSAND) SUBCUT SCH ×3 (06:41→21:21)
[2018-09-21 08:20] LABS: ABS Basophils 0.1 10^3/ul (0-0.2); ABS Eosinophils 0.1 10^3/ul (0-0.6); ABS Lymphocytes 1.9 10^3/ul (1.0-4.8); ABS Monocytes 0.8 10^3/ul (0-0.8); ABS Neutrophils 5.1 10^3/ul (1.5-7.7); ABS Nucleated RBC 0 10^3/ul; Eosinophil % 1.6 %; Hematocrit 41 % (36-46); Hemoglobin 13.8 g/dL (14.0-18.0); Lymphocyte % 23.4 %; Mean Corpuscular HGB Conc 34 g/dL (31-36); Mean Corpuscular Hemoglobin 27 pg (27-31); Mean Corpuscular Volume 80 fL (80-94); Mean Platelet Volume 7.7 fL (7.4-10.4); Nucleated Red Blood Cells % 0.1; Platelet Count 313 10^3/uL (150-450); Red Blood Count 5.17 10^6 /uL (4.18-5.48); Red Cell Distribution Width 14 % (10.5-15); White Blood Count 7.9 10^3/uL (3.5-10.8)
[2018-09-21 08:35] LABS: Albumin 3.6 g/dL (3.2-5.2); Albumin/Globulin Ratio 1.2 (1-3); BUN/Creatinine Ratio 9.9 (8-20); Calcium 8.7 mg/dL (8.6-10.3); EGFR African American 82.6 (>60); EGFR Non-African American 68.3 (>60); Globulin 3.1 g/dL (2-4); Potassium 4.5 mmol/L (3.5-5.0); Total Bilirubin 0.5 mg/dL (0.2-1.0); Total Protein 6.7 g/dL (6.4-8.9)
--- NOTE | 2018-09-21 08:52 | PN ---
Progress Note - Progress Note Date of Service: 09/21/18 Note: HD#2 diverticulitis Afeb, VS noted Still sore, prehaps a little less No N/V Voiding well Abd obese, soft, quite tender lower abd, no definite rebound WBC remains normal Impr: Focal contained perforated diverticulitis Cont IV abx Cont npo until improving Hopefully able to respond to iv abx and not require emergency surgery Will cont to follow w/you.
[2018-09-21 08:58] LABS: Urine Appearance Clear; Urine Bilirubin Negative (Negative); Urine Blood Negative (Negative); Urine Color Yellow; Urine Glucose Negative (Negative); Urine Ketones Negative (Negative); Urine Nitrite Negative (Negative); Urine Protein Negative (Negative); Urine Specific Gravity 1.018 (1.010-1.030); Urine Urobilinogen Negative (Negative)
--- NOTE | 2018-09-21 09:27 | PN ---
Progress Note - Progress Note Date of Service: 09/21/18 Note: Surgery Progress Note I saw patient this morning and examined him. I reviewed his imaging and laboratory studies. Please see full dictated H&P by JAI Arellano. Briefly, patient is a 57 M who was admitted for diverticulitis last week, improved on PO abx and suddenly developed worsening abdominal pain over the past several days. He returned to ED and CT abd pelvis showed diverticulitis with a small perforation, no abscess. WBC normal, vitals normal. He says today that he feels slightly more pain. He is tender in the lower midline on exam. I discussed with him that for now close observation and IV abx will be the management course. If he fails to significantly improve or if he clinically deteriorates he will require a sigmoidectomy and likely an ostomy. If he is able to improve with antibiotics, he should have an outpatient colonoscopy in 2 months and return to discuss the possibility of an elective sigmoidectomy. He understands and all questions were answered.
--- NOTE | 2018-09-21 11:56 | PN ---
Subjective Date of Service: 09/21/18 Interval History: Pt seen and examined. Meds and labs reviewed. CC: N/A ROS: Denied BARTHOLOMEW/dizziness, F/C, N/V, CP, SOB, increased cough, sputum production , abd pain, diarrhea, constipation, dysuria, myalgias, arthralgias, throat pain , and new skin lesions. The rest of the 14 point ROS are unremarkable. PHYSICAL EXAM: GEN APPEARANCE: Awake, not in acute distress HEENT: NC/AT, PERRLA, moist oral mucosa, (-) throat erythema NECK: Soft, supple, (-) cervical LAD, (-)JVD HEART: S1S2 WNL, RRR, No MRG CHEST: CTA, BL, GAE, No W/R/R ABD: Soft, ND/(+)Suprapubic and LLQ tenderness, NABS 4x Q EXT: No C/C/E SKIN: Warm to touch PSYCH: No active psychosis, hallucinations, depression, SI/HI Objective Active Medications: Albuterol (Ventolin Hfa Inhaler*) 2 puff INH Q4H PRN PRN Reason: WHEEZING Atorvastatin Calcium (Lipitor*) 10 mg PO QPM [facility] Last Admin: 09/20/18 17:41 Dose: 10 mg Cyclobenzaprine HCl (Flexeril Tab*) 10 mg PO BEDTIME PRN PRN Reason: PAIN - BACK Heparin Sodium (Porcine) (Heparin Vial(*)) 5,000 units SUBCUT Q8HR [facility] Last Admin: 09/21/18 06:41 Dose: 5,000 units Sodium Chloride (Ns 0.9% 1000 Ml) 1,000 mls @ 100 mls/hr IV PER RATE [facility] Last Admin: 09/20/18 17:42 Dose: 100 mls/hr Piperacillin Sod/Tazobactam (Sod 3.375 gm/ Sodium Chloride) 100 mls @ 25 mls/ hr IVPB Q8H [facility] Last Admin: 09/21/18 08:39 Dose: 25 mls/hr Levothyroxine Sodium (Synthroid Tab*) 125 mcg PO QAM@0600 [facility] Last Admin: 09/21/18 06:40 Dose: 125 mcg Morphine Sulfate (Morphine Inj (Syringe))*) 2 mg IV Q4H PRN PRN Reason: PAIN - MILD Pharmacy Consult (Zosyn Per Pharmacy*) 1 note FOLLOW UP .ZOSYN PER PHARMACY [facility] Prochlorperazine Edisylate (Compazine Inj*) 5 mg IV Q6H PRN PRN Reason: NAUSEA/VOMITING Vital Signs - 8 hr 09/21/18 09/21/18 07:41 07:45 Temperature 98.0 F Pulse Rate 71 Respiratory 16 16 Rate Blood Pressure 152/78 (mmHg) O2 Sat by Pulse 97 Oximetry Oxygen Devices in Use Now: None Result Diagrams: 09/21/18 08:05 09/21/18 08:05 Microbiology and Other Data: Microbiology 09/20/18 11:37 Aerobic Blood Culture - Preliminary Blood Venous No Growth Day 1 Anaerobic Blood Culture - Preliminary No Growth Day 1 Assess/Plan/Problems-Billing Assessment: - Patient Problems (1) Diverticulitis Current Visit: No Status: Acute Code(s): K57.92 - DVTRCLI OF INTEST, PART UNSP, W/O PERF OR ABSCESS W/O BLEED SNOMED Code(s): 014360028 Comment: -Appreciate Sx F/U -Continue Zosyn -If above conservative therapy fails, for sigmoidectomy w/likely ostomy placement -If improves, for outpt colonoscopy in 2 mos then return for possible sigmoidectomy (2) Dark stools Current Visit: Yes Status: Acute Code(s): R19.5 - OTHER FECAL ABNORMALITIES SNOMED Code(s): 72372694 Comment: -Likely due to above -Pt mentions this has resolved and had loose bowel movement that is brownish in color (3) Hypothyroid Current Visit: No Status: Acute Code(s): E03.9 - HYPOTHYROIDISM, UNSPECIFIED SNOMED Code(s): 94405853 Comment: -Continue Synthroid -Will check TSH in AM (4) Hyperlipidemia Current Visit: No Status: Acute Code(s): E78.5 - HYPERLIPIDEMIA, UNSPECIFIED SNOMED Code(s): 32752697 Comment: -Continue Atorvastatin (5) DVT prophylaxis Current Visit: No Status: Acute Code(s): GNV0223 - SNOMED Code(s): 741954616 Comment: -Continue Heparin SQ Status and Disposition: -As above
[2018-09-21] MEDS: NS 0.9% 1000 ML** 1,000 ML IV SCH ×2 (12:50→23:13)
[2018-09-21] MEDS: Atorvastatin* 10 MG TAB PO SCH (16:57)
[2018-09-22] MEDS: ZOSYN 3.375 GM Q8H per EXTENDED INFUSION IVPB SCH ×6 (01:25→18:13)
[2018-09-22] MEDS: Heparin VIAL(*) 5000 UNITS/ML VIAL (FIVE THOUSAND) SUBCUT SCH ×3 (05:50→22:09)
[2018-09-22] MEDS: Levothyroxine TAB* 125 MCG TAB PO SCH (05:50)
[2018-09-22] MEDS: NS 0.9% 1000 ML** 1,000 ML IV SCH ×2 (07:46→22:12)
--- NOTE | 2018-09-22 09:29 | PN ---
Progress Note - Progress Note Date of Service: 09/22/18 Note: HD#2 divertic Afeb Hungry Voiding Diarrhea Pain much better Abd obese, soft minimally tender, No peritonitis Cont IV ABX Start liquids
--- NOTE | 2018-09-22 14:56 | PN ---
Subjective Date of Service: 09/22/18 Interval History: Pt seen and examined. Meds and labs reviewed. CC: N/A; Pt in good spirits and wants to eat. ROS: Denied BARTHOLOMEW/dizziness, F/C, N/V, CP, SOB, increased cough, sputum production , abd pain, diarrhea, constipation, dysuria, myalgias, arthralgias, throat pain , and new skin lesions. The rest of the 14 point ROS are unremarkable. PHYSICAL EXAM: GEN APPEARANCE: Awake, not in acute distress HEENT: NC/AT, PERRLA, moist oral mucosa, (-) throat erythema NECK: Soft, supple, (-) cervical LAD, (-)JVD HEART: S1S2 WNL, RRR, No MRG CHEST: CTA, BL, GAE, No W/R/R ABD: Soft, ND/(+)Suprapubic and LLQ tenderness, NABS 4x Q EXT: No C/C/E SKIN: Warm to touch PSYCH: No active psychosis, hallucinations, depression, SI/HI Objective Active Medications: Albuterol (Ventolin Hfa Inhaler*) 2 puff INH Q4H PRN PRN Reason: WHEEZING Atorvastatin Calcium (Lipitor*) 10 mg PO QPM [facility] Last Admin: 09/21/18 16:57 Dose: 10 mg Cyclobenzaprine HCl (Flexeril Tab*) 10 mg PO BEDTIME PRN PRN Reason: PAIN - BACK Heparin Sodium (Porcine) (Heparin Vial(*)) 5,000 units SUBCUT Q8HR [facility] Last Admin: 09/22/18 05:50 Dose: 5,000 units Piperacillin Sod/Tazobactam (Sod 3.375 gm/ Sodium Chloride) 100 mls @ 25 mls/ hr IVPB Q8H [facility] Last Admin: 09/22/18 07:46 Dose: 25 mls/hr Sodium Chloride (Ns 0.9% 1000 Ml) 1,000 mls @ 60 mls/hr IV PER RATE [facility] Levothyroxine Sodium (Synthroid Tab*) 125 mcg PO QAM@0600 [facility] Last Admin: 09/22/18 05:50 Dose: 125 mcg Morphine Sulfate (Morphine Inj (Syringe))*) 2 mg IV Q4H PRN PRN Reason: PAIN - MILD Pharmacy Consult (Zosyn Per Pharmacy*) 1 note FOLLOW UP .ZOSYN PER PHARMACY [facility] Prochlorperazine Edisylate (Compazine Inj*) 5 mg IV Q6H PRN PRN Reason: NAUSEA/VOMITING Vital Signs - 8 hr 09/22/18 09/22/18 07:22 08:00 Temperature 97.5 F Pulse Rate 76 Respiratory 17 18 Rate Blood Pressure 141/83 (mmHg) O2 Sat by Pulse 96 Oximetry Oxygen Devices in Use Now: None Result Diagrams: 09/21/18 08:05 09/21/18 08:05 Microbiology and Other Data: Microbiology 09/20/18 11:37 Aerobic Blood Culture - Preliminary Blood Venous No Growth Day 1 Anaerobic Blood Culture - Preliminary No Growth Day 1 Assess/Plan/Problems-Billing Assessment: - Patient Problems (1) Diverticulitis Current Visit: No Status: Acute Code(s): K57.92 - DVTRCLI OF INTEST, PART UNSP, W/O PERF OR ABSCESS W/O BLEED SNOMED Code(s): 152276318 Comment: -Diet advanced to full liquid by Dr. Nguyen -Continue Zosyn -If above conservative therapy fails, for sigmoidectomy w/likely ostomy placement -If improves, for outpt colonoscopy in 2 mos then return for possible sigmoidectomy (2) Dark stools Current Visit: Yes Status: Acute Code(s): R19.5 - OTHER FECAL ABNORMALITIES SNOMED Code(s): 74568144 Comment: -Likely due to above -Pt mentions this has resolved and had loose bowel movement that is brownish in color (3) Hypothyroid Current Visit: No Status: Acute Code(s): E03.9 - HYPOTHYROIDISM, UNSPECIFIED SNOMED Code(s): 05061534 Comment: -Continue Synthroid -Still awaiting TSH in AM (4) Hyperlipidemia Current Visit: No Status: Acute Code(s): E78.5 - HYPERLIPIDEMIA, UNSPECIFIED SNOMED Code(s): 00990650 Comment: -Continue Atorvastatin (5) DVT prophylaxis Current Visit: No Status: Acute Code(s): XSJ8989 - SNOMED Code(s): 114108564 Comment: -Continue Heparin SQ Status and Disposition: -As above
[2018-09-22] MEDS: Atorvastatin* 10 MG TAB PO SCH (18:15)
[2018-09-23] MEDS: ZOSYN 3.375 GM Q8H per EXTENDED INFUSION IVPB SCH ×6 (01:17→17:20)
[2018-09-23] MEDS: Levothyroxine TAB* 125 MCG TAB PO SCH (06:11)
[2018-09-23] MEDS: Heparin VIAL(*) 5000 UNITS/ML VIAL (FIVE THOUSAND) SUBCUT SCH ×3 (06:11→21:21)
[2018-09-23 07:21] LABS: Hematocrit 40 % (36-46); Hemoglobin 13.2 g/dL (14.0-18.0); Mean Corpuscular HGB Conc 33 g/dL (31-36); Mean Corpuscular Hemoglobin 26 pg (27-31); Mean Corpuscular Volume 79 fL (80-94); Mean Platelet Volume 7.7 fL (7.4-10.4); Platelet Count 286 10^3/uL (150-450); Red Blood Count 5.04 10^6 /uL (4.18-5.48); Red Cell Distribution Width 15 % (10.5-15); White Blood Count 5.6 10^3/uL (3.5-10.8)
[2018-09-23 07:31] LABS: Albumin 3.4 g/dL (3.2-5.2); Albumin/Globulin Ratio 1.2 (1-3); BUN/Creatinine Ratio 8.4 (8-20); Calcium 8.6 mg/dL (8.6-10.3); EGFR African American 98.5 (>60); EGFR Non-African American 81.4 (>60); Globulin 2.9 g/dL (2-4); Phosphorus 3.1 mg/dL (2.5-5.0); Potassium 4.2 mmol/L (3.5-5.0); Total Bilirubin 0.3 mg/dL (0.2-1.0); Total Protein 6.3 g/dL (6.4-8.9)
--- NOTE | 2018-09-23 09:05 | PN ---
Progress Note - Progress Note Date of Service: 09/23/18 Note: Surgery Progress Note S: Patient reports feeling well today. Denies pain, nausea or emesis. Tolerated full clears yesterday. Has flatus and liquid BM. No fevers. Complains of left thigh soreness and tightness O: Vital Signs: Temp Pulse Resp BP Pulse Ox 97.7 F 62 16 134/73 98 09/23/18 07:44 09/23/18 07:44 09/23/18 07:44 09/23/18 07:44 09/23/18 07:44 Laboratory Last Values WBC 5.6 10^3/uL (3.5-10.8) 09/23/18 06:50 RBC 5.04 10^6 /uL (4.18-5.48) 09/23/18 06:50 Hgb 13.2 g/dL (14.0-18.0) L 09/23/18 06:50 Hct 40 % (36-46) 09/23/18 06:50 MCV 79 fL (80-94) L 09/23/18 06:50 MCH 26 pg (27-31) L 09/23/18 06:50 MCHC 33 g/dL (31-36) 09/23/18 06:50 RDW 15 % (10.5-15) 09/23/18 06:50 Plt Count 286 10^3/uL (150-450) 09/23/18 06:50 MPV 7.7 fL (7.4-10.4) 09/23/18 06:50 Neut % (Auto) 64.6 % 09/21/18 08:05 Lymph % (Auto) 23.4 % 09/21/18 08:05 Trigg % (Auto) 9.6 % 09/21/18 08:05 Eos % (Auto) 1.6 % 09/21/18 08:05 Baso % (Auto) 0.8 % 09/21/18 08:05 Absolute Neuts (auto) 5.1 10^3/ul (1.5-7.7) 09/21/18 08:05 Absolute Lymphs (auto) 1.9 10^3/ul (1.0-4.8) 09/21/18 08:05 Absolute Monos (auto) 0.8 10^3/ul (0-0.8) 09/21/18 08:05 Absolute Eos (auto) 0.1 10^3/ul (0-0.6) 09/21/18 08:05 Absolute Basos (auto) 0.1 10^3/ul (0-0.2) 09/21/18 08:05 Absolute Nucleated RBC 0 10^3/ul 09/21/18 08:05 Nucleated RBC % 0.1 09/21/18 08:05 Sodium 137 mmol/L (135-145) 09/23/18 06:50 Potassium 4.2 mmol/L (3.5-5.0) 09/23/18 06:50 Chloride 107 mmol/L (101-111) 09/23/18 06:50 Carbon Dioxide 25 mmol/L (22-32) 09/23/18 06:50 Anion Gap 5 mmol/L (2-11) 09/23/18 06:50 BUN 8 mg/dL (6-24) 09/23/18 06:50 Creatinine 0.95 mg/dL (0.67-1.17) 09/23/18 06:50 Est GFR ( Amer) 98.5 (>60) 09/23/18 06:50 Est GFR (Non-Af Amer) 81.4 (>60) 09/23/18 06:50 BUN/Creatinine Ratio 8.4 (8-20) 09/23/18 06:50 Glucose 106 mg/dL (70-100) H 09/23/18 06:50 Lactic Acid 0.8 mmol/L (0.5-2.0) 09/20/18 12:29 Calcium 8.6 mg/dL (8.6-10.3) 09/23/18 06:50 Phosphorus 3.1 mg/dL (2.5-5.0) 09/23/18 06:50 Magnesium 2.0 mg/dL (1.9-2.7) 09/23/18 06:50 Total Bilirubin 0.30 mg/dL (0.2-1.0) 09/23/18 06:50 AST 17 U/L (13-39) 09/23/18 06:50 ALT 18 U/L (7-52) 09/23/18 06:50 Alkaline Phosphatase 59 U/L (34-104) 09/23/18 06:50 Troponin I 0.01 ng/mL (<0.04) 09/20/18 12:29 C-Reactive Protein 22.55 mg/L (<8.01) H 09/20/18 12:29 B-Natriuretic Peptide 13 pg/mL (<=100) 09/20/18 12:29 Total Protein 6.3 g/dL (6.4-8.9) L 09/23/18 06:50 Albumin 3.4 g/dL (3.2-5.2) 09/23/18 06:50 Globulin 2.9 g/dL (2-4) 09/23/18 06:50 Albumin/Globulin Ratio 1.2 (1-3) 09/23/18 06:50 Lipase 18 U/L (11.0-82.0) 09/20/18 12:29 Urine Color Yellow 09/21/18 08:46 Urine Appearance Clear 09/21/18 08:46 Urine pH 6.0 (5-9) 09/21/18 08:46 Ur Specific [employer] 1.018 (1.010-1.030) 09/21/18 08:46 Urine Protein Negative (Negative) 09/21/18 08:46 Urine Ketones Negative (Negative) 09/21/18 08:46 Urine Blood Negative (Negative) 09/21/18 08:46 Urine Nitrate Negative (Negative) 09/21/18 08:46 Urine Bilirubin Negative (Negative) 09/21/18 08:46 Urine Urobilinogen Negative (Negative) 09/21/18 08:46 Ur Leukocyte Esterase Negative (Negative) 09/21/18 08:46 Urine Glucose Negative (Negative) 09/21/18 08:46 Intake & Output 09/22/18 09/23/18 09/23/18 22:59 06:59 14:59 Intake Total 570 1919 Balance 570 1919 Intake: IV Fluids 1626 NS (0.9%) 1626 IVPB 293 ABX - ZOSYN 293 Oral 570 0 Other: # Bowel Movements 0 # Voids 0 0 Objective: Abdomen- soft, minimally tender in lower midline Extremities- soft calves, tenderness around left posterior thigh A/P: 58 M with diverticulitis s/p recent readmission after failure on outpatient antibiotics with evidence of limited perforation, improving. Continues to be afebrile, no WBC and has minimal tenderness - Patient tolerated full liquids yesterday. Would advance to a soft diet today - Recommend discussing antibiotic regimen and course with Dr. Cao, given that patient has failed outpatient management with PO cipro/flagyl after a 4 day in patient hospitalization for uncomplicated diverticulitis. - Recommend US of left lower extremity to assess for DVT
[2018-09-23] MEDS: Atorvastatin* 10 MG TAB PO SCH (17:20)
--- NOTE | 2018-09-23 17:52 | PN ---
Subjective Date of Service: 09/23/18 Interval History: Pt seen and examined. Meds and labs reviewed. CC: Complains of LLE cramping/pain ROS: Denied BARTHOLOMEW/dizziness, F/C, N/V, CP, SOB, increased cough, sputum production , abd pain, diarrhea, constipation, dysuria, myalgias, arthralgias, throat pain , and new skin lesions. The rest of the 14 point ROS are unremarkable. PHYSICAL EXAM: GEN APPEARANCE: Awake, not in acute distress HEENT: NC/AT, PERRLA, moist oral mucosa, (-) throat erythema NECK: Soft, supple, (-) cervical LAD, (-)JVD HEART: S1S2 WNL, RRR, No MRG CHEST: CTA, BL, GAE, No W/R/R ABD: Soft, ND/NT, NABS 4x Q EXT: No C/C/E SKIN: Warm to touch PSYCH: No active psychosis, hallucinations, depression, SI/HI Objective Active Medications: Albuterol (Ventolin Hfa Inhaler*) 2 puff INH Q4H PRN PRN Reason: WHEEZING Atorvastatin Calcium (Lipitor*) 10 mg PO QPM [facility] Last Admin: 09/23/18 17:20 Dose: 10 mg Cyclobenzaprine HCl (Flexeril Tab*) 10 mg PO BEDTIME PRN PRN Reason: PAIN - BACK Heparin Sodium (Porcine) (Heparin Vial(*)) 5,000 units SUBCUT Q8HR [facility] Last Admin: 09/23/18 14:25 Dose: 5,000 units Piperacillin Sod/Tazobactam (Sod 3.375 gm/ Sodium Chloride) 100 mls @ 25 mls/ hr IVPB Q8H [facility] Last Admin: 09/23/18 17:20 Dose: 25 mls/hr Sodium Chloride (Ns 0.9% 1000 Ml) 1,000 mls @ 60 mls/hr IV PER RATE [facility] Last Admin: 09/22/18 22:12 Dose: 60 mls/hr Levothyroxine Sodium (Synthroid Tab*) 125 mcg PO QAM@0600 [facility] Last Admin: 09/23/18 06:11 Dose: 125 mcg Morphine Sulfate (Morphine Inj (Syringe))*) 2 mg IV Q4H PRN PRN Reason: PAIN - MILD Pharmacy Consult (Zosyn Per Pharmacy*) 1 note FOLLOW UP .ZOSYN PER PHARMACY [facility] Prochlorperazine Edisylate (Compazine Inj*) 5 mg IV Q6H PRN PRN Reason: NAUSEA/VOMITING Vital Signs - 8 hr 09/23/18 09/23/18 11:21 15:18 Temperature 98.0 F 98.4 F Pulse Rate 62 77 Respiratory 18 16 Rate Blood Pressure 124/76 120/74 (mmHg) O2 Sat by Pulse 98 97 Oximetry Oxygen Devices in Use Now: None Result Diagrams: 09/23/18 06:50 09/23/18 06:50 Microbiology and Other Data: Microbiology 09/20/18 11:37 Aerobic Blood Culture - Preliminary Blood Venous No Growth Day 1 Anaerobic Blood Culture - Preliminary No Growth Day 1 Assess/Plan/Problems-Billing Assessment: - Patient Problems (1) Diverticulitis Current Visit: No Status: Acute Code(s): K57.92 - DVTRCLI OF INTEST, PART UNSP, W/O PERF OR ABSCESS W/O BLEED SNOMED Code(s): 272790791 Comment: -Improving -Appreciate Sx F/U and diet advanced to GI soft -Continue Zosyn -If above conservative therapy fails, for sigmoidectomy w/likely ostomy placement -If improves, for outpt colonoscopy in 2 mos then return for possible sigmoidectomy -D/W Dr. Cao and agrees on planned Augmentin PO x 10 days on D/C (2) Acute pain of left lower extremity Current Visit: Yes Status: Acute Code(s): M79.605 - PAIN IN LEFT LEG SNOMED Code(s): 45896013 Comment: -No evidence of DVT but sluggish flow within common and distal femoral veins (3) Dark stools Current Visit: Yes Status: Acute Code(s): R19.5 - OTHER FECAL ABNORMALITIES SNOMED Code(s): 87432021 Comment: -Likely due to above -Pt mentions this has resolved and had loose bowel movement that is brownish in color (4) Hypothyroid Current Visit: No Status: Acute Code(s): E03.9 - HYPOTHYROIDISM, UNSPECIFIED SNOMED Code(s): 63264633 Comment: -Continue Synthroid -Still awaiting TSH in AM (5) Hyperlipidemia Current Visit: No Status: Acute Code(s): E78.5 - HYPERLIPIDEMIA, UNSPECIFIED SNOMED Code(s): 39602643 Comment: -Continue Atorvastatin (6) DVT prophylaxis Current Visit: No Status: Acute Code(s): KET6497 - SNOMED Code(s): 855345621 Comment: -Continue Heparin SQ Status and Disposition: -Possible D/C in AM if stable and able to tolerate soft GI diet
[2018-09-24] MEDS: ZOSYN 3.375 GM Q8H per EXTENDED INFUSION IVPB SCH ×4 (00:39→09:14)
[2018-09-24] MEDS: Heparin VIAL(*) 5000 UNITS/ML VIAL (FIVE THOUSAND) SUBCUT SCH (05:43)
[2018-09-24] MEDS: Levothyroxine TAB* 125 MCG TAB PO SCH (05:43)
[2018-09-24] MEDS: NS 0.9% 1000 ML** 1,000 ML IV SCH (05:45)
[2018-09-24 06:41] LABS: ABS Basophils 0 10^3/ul (0-0.2); ABS Eosinophils 0.2 10^3/ul (0-0.6); ABS Lymphocytes 2.1 10^3/ul (1.0-4.8); ABS Monocytes 0.5 10^3/ul (0-0.8); ABS Neutrophils 3.2 10^3/ul (1.5-7.7); ABS Nucleated RBC 0 10^3/ul; Eosinophil % 2.8 %; Hematocrit 41 % (36-46); Hemoglobin 13.5 g/dL (14.0-18.0); Lymphocyte % 34.9 %; Mean Corpuscular HGB Conc 33 g/dL (31-36); Mean Corpuscular Hemoglobin 26 pg (27-31); Mean Corpuscular Volume 79 fL (80-94); Nucleated Red Blood Cells % 0; Platelet Count 316 10^3/uL (150-450); Red Blood Count 5.17 10^6 /uL (4.18-5.48); Red Cell Distribution Width 15 % (10.5-15); White Blood Count 6.1 10^3/uL (3.5-10.8)
[2018-09-24 06:42] LABS: Albumin 3.5 g/dL (3.2-5.2); Albumin/Globulin Ratio 1.3 (1-3); BUN/Creatinine Ratio 10.1 (8-20); Calcium 8.8 mg/dL (8.6-10.3); EGFR African American 84.1 (>60); EGFR Non-African American 69.5 (>60); Globulin 2.8 g/dL (2-4); Magnesium 1.9 mg/dL (1.9-2.7); Potassium 4.3 mmol/L (3.5-5.0); Total Bilirubin 0.3 mg/dL (0.2-1.0); Total Protein 6.3 g/dL (6.4-8.9)
[2018-09-24 11:35] VITALS: BP 112/68
--- NOTE | 2018-09-24 13:06 | PN ---
Work Excuse - Work Note Work Note: September 24, 2018 This is to confirm that Mr. Onofre Stoll has been admitted on 09/20/18 and has been evaluated in our facility. He has been discharged today on 09/24/18 with the caveat that he will need to follow up with his physicians in the outpatient setting. He requires respite from work for at least two weeks until he gets re- evaluated by his physicians to determine his future work fitness. Please call my office for any questions or concerns. Due to HIPPA, we cannot provide any specifics regarding the details of her hospitalization unless a written and signed consent from Ms. Bravo is made available for our records. Sincerely, Easton Urrutia M.D.
--- NOTE | 2018-09-24 13:27 | PN ---
Progress Note - Progress Note Date of Service: 09/24/18 Note: Surgery progress note Subjective: I saw patient earlier this morning at approximately 9 AM. Patient was reporting doing well. He had almost no abdominal pain. He was tolerating a soft diet without difficulty. He has no nausea or vomiting. He had a left lower extremity duplex that did not show any DVT yesterday. Objective: Vital Signs: Temp Pulse Resp BP Pulse Ox 97.8 F 79 18 112/68 97 09/24/18 11:35 09/24/18 11:35 09/24/18 11:35 09/24/18 11:35 09/24/18 11:35 Laboratory Last Values WBC 6.1 10^3/uL (3.5-10.8) 09/24/18 06:08 RBC 5.17 10^6 /uL (4.18-5.48) 09/24/18 06:08 Hgb 13.5 g/dL (14.0-18.0) L 09/24/18 06:08 Hct 41 % (36-46) 09/24/18 06:08 MCV 79 fL (80-94) L 09/24/18 06:08 MCH 26 pg (27-31) L 09/24/18 06:08 MCHC 33 g/dL (31-36) 09/24/18 06:08 RDW 15 % (10.5-15) 09/24/18 06:08 Plt Count 316 10^3/uL (150-450) 09/24/18 06:08 MPV 8.0 fL (7.4-10.4) 09/24/18 06:08 Neut % (Auto) 52.7 % 09/24/18 06:08 Lymph % (Auto) 34.9 % 09/24/18 06:08 Larue % (Auto) 8.8 % 09/24/18 06:08 Eos % (Auto) 2.8 % 09/24/18 06:08 Baso % (Auto) 0.8 % 09/24/18 06:08 Absolute Neuts (auto) 3.2 10^3/ul (1.5-7.7) 09/24/18 06:08 Absolute Lymphs (auto) 2.1 10^3/ul (1.0-4.8) 09/24/18 06:08 Absolute Monos (auto) 0.5 10^3/ul (0-0.8) 09/24/18 06:08 Absolute Eos (auto) 0.2 10^3/ul (0-0.6) 09/24/18 06:08 Absolute Basos (auto) 0 10^3/ul (0-0.2) 09/24/18 06:08 Absolute Nucleated RBC 0 10^3/ul 09/24/18 06:08 Nucleated RBC % 0 09/24/18 06:08 Sodium 137 mmol/L (135-145) 09/24/18 06:08 Potassium 4.3 mmol/L (3.5-5.0) 09/24/18 06:08 Chloride 106 mmol/L (101-111) 09/24/18 06:08 Carbon Dioxide 26 mmol/L (22-32) 09/24/18 06:08 Anion Gap 5 mmol/L (2-11) 09/24/18 06:08 BUN 11 mg/dL (6-24) 09/24/18 06:08 Creatinine 1.09 mg/dL (0.67-1.17) 09/24/18 06:08 Est GFR ( Amer) 84.1 (>60) 09/24/18 06:08 Est GFR (Non-Af Amer) 69.5 (>60) 09/24/18 06:08 BUN/Creatinine Ratio 10.1 (8-20) 09/24/18 06:08 Glucose 113 mg/dL (70-100) H 09/24/18 06:08 Lactic Acid 0.8 mmol/L (0.5-2.0) 09/20/18 12:29 Calcium 8.8 mg/dL (8.6-10.3) 09/24/18 06:08 Phosphorus 4.0 mg/dL (2.5-5.0) 09/24/18 06:08 Magnesium 1.9 mg/dL (1.9-2.7) 09/24/18 06:08 Total Bilirubin 0.30 mg/dL (0.2-1.0) 09/24/18 06:08 AST 15 U/L (13-39) 09/24/18 06:08 ALT 18 U/L (7-52) 09/24/18 06:08 Alkaline Phosphatase 61 U/L (34-104) 09/24/18 06:08 Troponin I 0.01 ng/mL (<0.04) 09/20/18 12:29 C-Reactive Protein 22.55 mg/L (<8.01) H 09/20/18 12:29 B-Natriuretic Peptide 13 pg/mL (<=100) 09/20/18 12:29 Total Protein 6.3 g/dL (6.4-8.9) L 09/24/18 06:08 Albumin 3.5 g/dL (3.2-5.2) 09/24/18 06:08 Globulin 2.8 g/dL (2-4) 09/24/18 06:08 Albumin/Globulin Ratio 1.3 (1-3) 09/24/18 06:08 Lipase 18 U/L (11.0-82.0) 09/20/18 12:29 Urine Color Yellow 09/21/18 08:46 Urine Appearance Clear 09/21/18 08:46 Urine pH 6.0 (5-9) 09/21/18 08:46 Ur Specific [place] 1.018 (1.010-1.030) 09/21/18 08:46 Urine Protein Negative (Negative) 09/21/18 08:46 Urine Ketones Negative (Negative) 09/21/18 08:46 Urine Blood Negative (Negative) 09/21/18 08:46 Urine Nitrate Negative (Negative) 09/21/18 08:46 Urine Bilirubin Negative (Negative) 09/21/18 08:46 Urine Urobilinogen Negative (Negative) 09/21/18 08:46 Ur Leukocyte Esterase Negative (Negative) 09/21/18 08:46 Urine Glucose Negative (Negative) 09/21/18 08:46 Intake & Output 09/23/18 09/24/18 09/24/18 22:59 06:59 14:59 Intake Total 1160 1095 350 Balance 1160 1095 350 Intake: IV Fluids 885 NS (0.9%) 885 IVPB 210 ABX - ZOSYN 210 Oral 1160 0 350 Other: Estimated Void Large # Bowel Movements 0 0 # Voids 1 Physical exam: Abdomen- soft, minimally tender in the mid lower abdomen, nondistended A/P: Patient is a 58-year-old male with a history of diverticulitis that has been complicated by a small contained perforation who is improving on antibiotics. He remained afebrile and without a white blood cell count. He is tolerating a diet and has also pain. Medicine has spoken to Dr. Cao who recommended Augmentin for outpatient antibiotics. Recommend the patient can be discharged with return precautions. He should follow up with GI for a colonoscopy and can be seen at [facility] afterwards for follow up.
--- NOTE | 2018-09-24 13:47 | PN ---
Work Excuse - Work Note Work Note: September 24, 2018 This is to confirm that Mr. Onofre Stoll has been admitted on 09/20/18 and has been evaluated in our facility. He has been discharged today on 09/24/18 with the caveat that he will need to follow up with his physicians in the outpatient setting. He requires respite from work for at least two weeks until he gets re- evaluated by his physicians to determine his future work fitness. Please call my office for any questions or concerns. Due to HIPPA, we cannot provide any specifics regarding the details of his hospitalization unless a written and signed consent from Mr. Stoll is made available for our records. Sincerely, Easton Urrutia M.D.
--- NOTE | 2018-09-24 23:03 | DS ---
CC: Dr. Ambrosio Springer; Dr. Shiela Gomez; Dr. Sim Gresham; Dr. Joellen Zuleta; Dr. Dash Nguyen * DISCHARGE SUMMARY: DATE OF ADMISSION: DATE OF DISCHARGE: 09/24/18 DISCHARGE CONDITION: Good. DISCHARGE DISPOSITION: Home. DISCHARGE DIAGNOSES: As follows: 1. Perforated diverticulitis, stabilized with antibiotic. 2. Bilateral lower extremity pain, possibly due to history of sciatica; deep venous thrombosis ruled out. HISTORY OF PRESENT ILLNESS/HOSPITAL COURSE: The patient is a 58-year-old gentleman with a history of hypothyroidism, hyperlipidemia with a history of nephrectomy, who was recently admitted on 09/11/18 and discharged on 09/14/18 for diagnosis of diverticulitis. He was subsequently discharged on p.o. antibiotics, on ciprofloxacin and Flagyl. However, he mentioned that the day after his discharge, he started feeling unwell and began having some left lower quadrant pain that was close to his groin and sudden fatigue. He then subsequently went back to the ED on 09/20/18 for which he had an abdominal and pelvic CT with IV contrast that suggested perforated diverticulitis with fatty infiltration of the liver and absent left kidney, all of which are known except for perforated diverticulitis. Surgical department was called in the ED who then deferred admission to the hospitalist service who then admitted the patient and placed him on Zosyn. He was followed by the surgical service throughout this hospitalization stay and the patient has done well with conservative management with IVF as well as antibiotic therapy and was able to tolerate a soft diet prior to discharge. He also complained of some bilateral lower extremity pain, and a Doppler ultrasound of the left lower extremities was initially done given that this was the first extremity that he was complaining of pain, which was negative for DVT. However, he does have a history of sciatica and he mentioned that Flexeril, which usually improves his sciatica, has improved his extremity pain as well. He has been advised to follow up and call his PCP within 3 days post discharge. He was advised to call his PCP and/or his surgeon for refills on his pain medications. If his symptoms resume or develop new ones or feel unwell for any reason, he was advised to call his PCP first. If his PCP cannot entertain him due to scheduling issues alone, he was advised to call [facility] if the issue is nonemergent. He was advised to follow up with the surgical department as discussed and to call their office to schedule a followup. He was reminded to take his Augmentin for 10 more days and he was advised to call my office regarding any questions, concerns or further clarifications regarding his discharge plans and/or prescriptions and he was advised to take his medications as prescribed. REVIEW OF SYSTEMS: On review of systems, the patient denied any recent headaches, dizziness, fevers, chills, nausea, vomiting, chest pain, shortness of breath, increased cough and/or sputum production, abdominal pain, diarrhea, constipation, pain and/or increased frequency on urination, myalgias, arthralgias, throat pain or new skin lesions. The rest of the 14-point review of systems is otherwise unremarkable. PHYSICAL EXAMINATION: Shows the most recent vital signs of records with blood pressure of 112/68, 97.8 degrees Fahrenheit, 79 beats per minute heart rate, 18 per minute respiratory rate, saturating at 97% on room air. General Appearance : The patient is awake, alert and oriented x3, not in acute distress. HEENT: Normocephalic, atraumatic. PERRLA. Extraocular muscles are intact. Negative for icterus. Moist oral mucosa. Negative throat erythema. Neck is soft, supple, with no cervical lymphadenopathy. Difficult to assess JVD given obesity. Heart: S1 and S2 within normal limits. Regular rate and rhythm. No murmurs, rubs, and gallops. Chest: Clear to auscultation bilaterally. Good air entry. No wheezes, rales, and rhonchi. Abdomen: Soft, nondistended, nontender. Normoactive bowel sounds x4 quadrants. Extremities: No cyanosis, clubbing, or edema. Psychiatric: No active psychosis, depression, suicidal or homicidal ideations. Skin is warm to touch. TIME SPENT: The total time spent evaluating the patient, reviewing pertinent data, and appropriate documentation is 1 hour and 5 minutes. [id number]/CPS #: [id number] MTDD
== END 2018-09-24 14:45 | disposition home or self-care (01) | DRG 392 ==
LOC: ED 10:42 → MED 16:23
PROVIDERS: ADMIT Internal Medicine; ATTEND Student in an Organized Health Care Education/Training Program
DX: K57.20 Diverticulitis of large intestine with perforation and abscess without bleeding (principal); Z68.41 Body mass index [BMI] 40.0-44.9, adult; E03.9 Hypothyroidism, unspecified; E78.00 Pure hypercholesterolemia, unspecified; M15.9 Polyosteoarthritis, unspecified; K76.0 Fatty (change of) liver, not elsewhere classified; K21.9 Gastro-esophageal reflux disease without esophagitis; E78.5 Hyperlipidemia, unspecified; E66.9 Obesity, unspecified; G89.29 Other chronic pain; M54.32 Sciatica, left side; M54.31 Sciatica, right side; J45.909 Unspecified asthma, uncomplicated; Z90.5 Acquired absence of kidney; Z87.442 Personal history of urinary calculi; Z87.891 Personal history of nicotine dependence; Z72.89 Other problems related to lifestyle; Z82.49 Family history of ischemic heart disease and other diseases of the circulatory system
CPT/HCPCS: 36415; 71046; 74177; 80053; 81003; 83605; 83690; 83735; 83880; 84100; 84484; 85025; 85027; 86140; 87040; 93005; 99284; A9270-GY; J1644; J2543; Q9967

== ENCOUNTER 2019-01-22 08:45 | Inpatient (IN) | payer OTHER ==
--- NOTE | 2018-12-31 16:33 | HP ---
CC: Dr. Sim Gresham; Dr. Onofre Pérez * DATE OF ADMISSION: 01/22/2019. This patient is scheduled for AA admission by Dr. Bennett. DATE OF PREOPERATIVE HISTORY AND PHYSICAL EXAMINATION: Monday, December 31, 2018. ATTENDING PHYSICIAN: Dr. Onofre Bennett * (dictated by Montse Tidwell NP). CHIEF COMPLAINT: Complicated diverticulitis. HISTORY OF PRESENT ILLNESS: The patient is a 58-year-old male with a history of recurrent and complicated diverticulitis. His most recent hospitalization at [facility] was in September 2018 for a focal contained perforated diverticulitis of the sigmoid colon that was treated with intravenous antibiotics. He is currently feeling well. He denies any abdominal pain, fever or chills. He is having regular formed bowel movements and has not noticed any blood per rectum. He has been exercising and eating well, and has been able to lose 40 pounds since being diagnosed with diverticulitis. He recently was seen by Dr. Bennett and they discussed surgical intervention and the patient wishes to proceed as advised with laparoscopic-assisted sigmoid colectomy. The patient underwent colonoscopy on 11/29/[address] Baltazar which revealed sigmoid colon diverticulosis and he had a single sigmoid colon polypectomy that was hyperplastic, no malignancy. He underwent a CT of the abdomen and pelvis which revealed resolved diverticulitis. Dr. Bennett has discussed the nature of the surgical procedure, the rationale for the procedure, the relevant risks and benefits, and today I reviewed the typical hospitalization and postoperative recovery. The patient has had a chance to ask questions and stated that he understands the information and is satisfied with the answers given to his questions. He will sign surgical consent on the day of surgery. He will take a bowel cleansing prep consisting of clear liquids, Colyte laxative, Neomycin tablets, and Metronidazole tablets on the day before surgery. He has been cleared by Dr. Onofre Pérez from Cardiology to proceed with the recommended surgery. PAST MEDICAL HISTORY: Obesity, recurrent diverticulitis, nephrolithiasis, hypothyroidism, hyperlipidemia, reactive airway disease. PAST SURGICAL HISTORY: Left nephrectomy as a , left shoulder surgery, right knee surgery. MEDICATIONS: 1. Levothyroxine 125 mcg p.o. daily. 2. Atorvastatin 10 mg p.o. daily. 3. Cyclobenzaprine 10 mg p.o. at bedtime prn muscle spasms. 4. Ibuprofen 800 mg t.i.d./prn. ALLERGIES: No known drug allergies. FAMILY HISTORY: Father had coronary artery bypass grafting in his 60s and was a heavy smoker. Mother had angina in her 50s and at age 68 from unspecified type of cancer. No known anesthesia complications, bleeding tendencies, or clotting disorders. 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 He is a former smoker who quit 30 years ago. He occasionally consumes alcohol and denies the use of substances and currently is exercising routinely. REVIEW OF SYSTEMS: Constitutional: No fevers, chills, excessive fatigue or unintended weight loss. Endocrine: He is on thyroid replacement. No diabetes. Hematologic: No easy bruising or bleeding. No blood transfusions. Respiratory : No dyspnea on exertion. No chronic cough. Cardiovascular: No anginal chest pain or palpitations. No history of myocardial infarction or CHF or CVA. No arrhythmias. Please see Dr. Onofre Pérez's cardiology clearance note. Gastrointestinal: No nausea, vomiting, diarrhea, GI bleeding, or constipation. He has a good appetite. Genitourinary: No dysuria. Musculoskeletal: Mild low back pain with a history of sciatica. Neurologic: No headache, blurred vision, or areas of focal weakness. General: No previous anesthesia complications. No history of deep vein thrombosis or pulmonary embolism. PHYSICAL EXAMINATION GENERAL: The patient is a 58-year-old, obese male, well-developed, well- nourished, in no acute distress. VITAL SIGNS: Height 70 inches, weight 239 pounds, body mass index 34.3. Blood pressure 112/70, pulse 90 and regular, respiratory rate 16, temperature 97.7. SKIN: Warm, dry, intact. HEENT: Benign. NECK: Supple. No carotid bruits. No cervical lymphadenopathy. BACK: No CVA tenderness. LUNGS: Breath sounds bilaterally clear and equal. CARDIOVASCULAR: Regular rate and rhythm. No murmurs or rubs. ABDOMEN: Well-healed midline surgical scar, active bowel sounds, soft, nondistended, nontender throughout. No obvious masses, organomegaly, or evidence of ventral hernia. EXTREMITIES: Warm without edema or skin ulcerations. GENITALIA: Exam deferred. RECTAL: Exam deferred. NEUROLOGIC: Alert and oriented times three, steady gait. IMPRESSION: Diverticulitis of the large intestine with a history of perforation and abscess. PLAN: AA admission to Dr. Bennett's service for laparoscopic-assisted sigmoid colectomy on Tuesday, January 22, 2019. The patient will take a bowel cleansing prep consisting of clear liquids, Colyte laxative, Neomycin, and Metronidazole. MAHSA TIDWELL, SHEARER SCREEN MEASURER AND TRIMMER [id number]/[facility] #: [id number] [facility] JO[facility]PH[facility]S HOSPITAL HEALTH CENTERBreanne
[~2019-01-22 08:45] MED LIST changes: -Buffered Lidocaine 0.9% SYRIN* 5 ML/SYR SYRINGE INTRADERM ONE; +Buffered Lidocaine 1% SYRIN* 1 ML/SYRINGE INTRADERM ONE; +Dexamethasone TAB* 4 MG PO ONE; +DiMENhydriNATE IV* 50 MG/ML VIAL IV PUSH PRN; +ERTApenem(*) 1 GM in NS 0.9% 50 ML* 50 ML IVPB SCH; +HYDROmorphone INJ1* 1 MG/ML SYRINGE IV PRN; +Lactated Ringers 1000 ML Bag* 1,000 ML IV SCH; +Naloxone* 0.4 MG/ML 1 ML VIAL IV PRN; +Ondansetron ODT TAB* 4 MG PO ONE; +PROCHLORPERAZINE INJ 5 MG/ML 2 ML VIAL IV PRN; +Scopolamine 1.5 mg* PATCH TRANSDERM ONE
[2019-01-22] MEDS ORDERED: fentaNYL* 50 MCG/ML 5 ML VIAL (250 MCG VIAL) ONE (09:47)
[2019-01-22] MEDS ORDERED: Atracurium* 10 MG/ML 10 ML VIAL ONE ×2 (09:47→14:06)
[2019-01-22] MEDS ORDERED: KETAMINE HCL* 50 MG/ML 10 ML VIAL ONE (09:48)
[2019-01-22] MEDS ORDERED: Midazolam* 1 MG/ML 5 ML VIAL (5 MG) ONE (09:48)
[2019-01-22] MEDS ORDERED: Ondansetron ODT TAB* 4 MG ONE (10:01)
[2019-01-22] MEDS ORDERED: Dexamethasone TAB* 4 MG ONE (10:02)
[2019-01-22] MEDS ORDERED: Famotidine IV* 10 MG/ML 2 ML (20 mg) ONE (10:02)
[2019-01-22] MEDS ORDERED: Buffered Lidocaine 1% SYRIN* 1 ML/SYRINGE INTRADERM ONE (10:02)
[2019-01-22] MEDS ORDERED: Heparin VIAL(*) 5000 UNITS/ML VIAL (FIVE THOUSAND) ONE (10:24)
[2019-01-22] MEDS ORDERED: Scopolamine 1.5 mg* PATCH ONE (10:46)
[2019-01-22] MEDS ORDERED: Bupivacaine 0.25% EPI 200,000* 30 ML SDV ONE ×2 (11:25→11:41)
[2019-01-22] MEDS ORDERED: DiMENhydriNATE IV* 50 MG/ML VIAL IV PUSH PRN (13:45)
[2019-01-22] MEDS ORDERED: EPHEDrine (Pressors)* 50 MG/ML VIAL IV PUSH PRN (13:45)
[2019-01-22] MEDS ORDERED: Hetastarch 6% in NS* 500 ML IV PRN (13:45)
[2019-01-22] MEDS ORDERED: Nalbuphine* 10 MG/ML 1 ML VIAL IV PRN (13:45)
[2019-01-22] MEDS ORDERED: PROCHLORPERAZINE INJ 5 MG/ML 2 ML VIAL IV PRN (13:45)
[2019-01-22] MEDS ORDERED: diPHENhydraMINE IV* 50 MG/ML 1 ml VIAL (BENADRYL) IV PRN (13:45)
[2019-01-22] MEDS ORDERED: Ropivacaine 0.2% EPIDURAL* 200 MG/100 ML BAG EPIDURAL ONE (13:57)
[2019-01-22] MEDS ORDERED: Ropivacaine 0.2% EPIDURAL* 200 MG/100 ML BAG EPIDURAL SCH (14:00)
[2019-01-22] MEDS ORDERED: Bupivacaine 0.5% SDV PF* 30ML VIAL ONE (16:00)
[2019-01-22] MEDS ORDERED: Propofol* 10 MG/ML 20 ML BTL ONE (16:00)
[2019-01-22] MEDS ORDERED: Bupivacaine 0.25% SDV PF* 10 ML VIAL INJ ONE (16:00)
[2019-01-22] MEDS ORDERED: Neostigmine Methylsulfate* 1 MG/ML 10 ML VIAL (1 mg/ml) ONE (16:00)
[2019-01-22] MEDS ORDERED: Glycopyrrolate IV* 0.2 MG/ML 1 ML VIAL ONE ×2 (16:00→16:53)
--- NOTE | 2019-01-22 17:29 | OP ---
Operative Report - Blank - Operative Report Date of Operation: 01/22/19 Note: Pre-OP Diagnoses: Diverticulitis Post-op Diagnosis: same Procedure: Laparoscopic assisted sigmoid colectomy Surgeon: Sabrina Asst: Giovany Armenta Anesthesia: GETA, epidural [place] EBL: <100cc IVF: 5000cc LR Specimen: sigmoid colon Drains: none lucas: 400cc
--- OUTSIDE RECORDS SUMMARY | 2019-01-22 17:54 | XMS REPORT | Continuity of Care Document ---
:1960 External Reference #:[id number] Author Name Page Arora Care Team Providers Name Role Phone Sim Gresham MD Primary Care Physician Unavailable Payers Date Identification Numbers Payment Provider Subscriber Policy Number: [id number] [employer] Reba Blanca PayID: [id number] [address] [address] [place] [address] Effective: 2017 Policy Number: Mary Blanca [id number] Onset: 2017 Group Name: fax# [phone] [address] PayID: [address] [id number] Problems Active Problems Provider Date Loose body in knee Jesus Sanabria MD Onset: 08/02/2017 Preoperative cardiovascular examination Ambrosio Springer MD Onset: 12/04/2017 Overweight Ambrosio Springer MD Onset: 12/04/2017 Knee pain Ambrosio Springer MD Onset: 12/04/2017 Family History Date Family Member(s) Observation Comments General Cancer General Hypertension Father Coronary Artery Disease (CAD) Mother Angina Social History Type Date Description Comments Sex Unknown Marital Status Lives With Spouse Occupation Currently Working 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 12/31/2018 Packs on the day [employer] [employer] 240gm Solution Rec before surgery Metronidazole 1 tablet by 3tabs Montse Bruno 12/31/2018 500mg Tablets mouth at 1pm,2pm [employer] [employer] and 11pm on 01/21/19 Neomycin Sulfate 2 tabs at 6tabs Montse B. 12/31/2018 500mg 1pm,2pm And 11PM EcCAMILLA castro Tablets on the day before surgery Cyclobenzaprine HCL 1 tablet by 30tabs M54.5 Missy Hernández, 08/19/2018 10mg mouth at bedtime M.D. Tablets as needed muscle spasms/pain Ibuprofen 3x daily as Unknown 800mg needed Levothyroxine Sodium 1 by mouth every Unknown 125mcg day Tablets Atorvastatin Calcium 1 by mouth every Unknown 10mg day Tablets History Medications Augmentin 1 tablet every 14tabs K57.20 Reba Bennett, 10/03/2018 - 875-125mg 12 hours for 7 MD, FACS Unknown Tablets days Aspirin Ec take 1 tab by 14tabs Jesus Barrios 12/14/2017 - 325mg mouth once a day MD Daniele 01/21/[address] for 2 weeks post op. Percocet 1-2 tabs by 20tabs Vasile Cordero MD 12/14/2017 - 5-325mg mouth every 4-6 01/21/2018 Tablets hours as needed pain Percocet one tablet every 20tabs Jesus Barrios 08/02/2017 - 5-325mg 4-6 hours as MD Daniele 09/19/2017 Tablets needed for pain Levoxyl Unknown - 07/02/2017 Zithromax 2 by mouth every Unknown - 500mg day Unknown Tablets Ventolin HFA 2 puffs by mouth Unknown - four times a day Unknown 108(90Base) mcg/Act as needed Aerosol Flagyl one three times Unknown - 500mg a day no etoh Unknown Tablets with product Cipro 1 by mouth twice Unknown - 500mg Tablets a day Unknown Augmentin one twice a day Unknown - 875-125mg with food Unknown Tablets Medications Administered in Office Medication SIG Qnty Indications Ordering Provider Date Depomedrol 40MG Jesus Sanabria MD 08/08/2017 Injection Vital Signs Date Vital Result Comment 12/31/2018 9:00am Height 70 inches 5'10" Weight 239.00 lb Heart Rate 90 /min BP Systolic Sitting 112 mmHg BP Diastolic Sitting 70 mmHg Respiratory Rate 16 /min Body Temperature 97.7 F BMI (Body Mass Index) 34.3 kg/m2 12/18/2018 9:41am Height 70 inches 5'10" Weight 244.00 lb with shoes Heart Rate 64 /min BP Systolic Sitting 110 mmHg lue large cuff BP Diastolic Sitting 70 mmHg lue large cuff BP Systolic Standing 112 mmHg lue large cuff BP Diastolic Standing 70 mmHg lue large cuff Respiratory Rate 12 /min BMI (Body Mass Index) 35.0 kg/m2 Ejection Fraction lue largef 12/03/2018 2:50pm Height 70 inches 5'10" Weight 248.00 lb Heart Rate 84 /min BP Systolic Sitting 114 mmHg BP Diastolic Sitting 72 mmHg Respiratory Rate 16 /min Body Temperature 97.3 F BMI (Body Mass Index) 35.6 kg/m2 10/03/2018 3:16pm Heart Rate 72 /min BP Systolic Sitting 128 mmHg BP Diastolic Sitting 84 mmHg Respiratory Rate 18 /min Body Temperature 98.4 F 09/26/2018 11:24am Height 70 inches 5'10" Weight 262.00 lb Heart Rate 76 /min BP Systolic 126 mmHg BP Diastolic 80 mmHg Respiratory Rate 18 /min Body Temperature 96.7 F BMI (Body Mass Index) 37.6 kg/m2 08/19/2018 11:17am Height 70 inches 5'10" Weight 124.88 lb Pain Level 2 varies w/ movement BMI (Body Mass Index) 17.9 kg/m2 03/05/2018 2:06pm Heart Rate 72 /min BP Systolic Sitting 116 mmHg BP Diastolic Sitting 68 mmHg Respiratory Rate 16 /min Pain Level 0 01/22/2018 2:29pm Height 70 inches 5'10" Heart Rate 77 /min Respiratory Rate 17 /min Pain Level 0 12/25/2017 8:26am Height 70 inches 5'10" Weight 274.00 lb BP Systolic 126 mmHg BP Diastolic 72 mmHg Respiratory Rate 18 /min Body Temperature 97.8 F Pain Level 2 BMI (Body Mass Index) 39.3 kg/m2 12/04/2017 2:21pm Weight 274.00 lb Heart Rate 80 /min Body Temperature 97.6 F Pain Level 2 O2 % BldC Oximetry 94 % 11/19/2017 3:11pm Height 70 inches 5'10" Heart Rate 69 /min BP Systolic 126 mmHg BP Diastolic 70 mmHg Respiratory Rate 16 /min Body Temperature 97.6 F Pain Level 5 09/20/2017 2:29pm Height 70 inches 5'10" Weight 260.00 lb Heart Rate 69 /min Respiratory Rate 15 /min Pain Level 2 BMI (Body Mass Index) 37.3 kg/m2 08/08/2017 2:50pm Height 70 inches 5'10" Heart Rate 66 /min BP Systolic 140 mmHg BP Diastolic 80 mmHg Respiratory Rate 18 /min Body Temperature 96.2 F Pain Level 0 08/02/2017 9:27am Height 70 inches 5'10" Weight 260.00 lb per pt Heart Rate 68 /min reg Respiratory Rate 16 /min Pain Level 10 right knee BMI (Body Mass Index) 37.3 kg/m2 10/23/2013 9:09am Height 70 inches 5'10" Weight 250.00 lb Heart Rate 71 /min BP Systolic 124 mmHg BP Diastolic 91 mmHg Pain Level 1 BMI (Body Mass Index) 35.9 kg/m2 Results Test Date Facility Test Result H/L Range Note Surgical Pathology 10/18/2012 [facility] S RUN DATE: [employer] <SEE NOTE> [place] [address] [phone] 1 RUN DATE: 10/22/12 [facility] LAB LIVE PAGE 1 RUN TIME: [address] [facility] [facility], [place] [address] Specimen Inquiry Name: REBA BLANCA : [address]: Ulices Becerra MD Acct: [id number] Unit: [id number] AGE: 52 Location: OR Re10/18/12 SEX: M Status: REG SDC SPEC: [id number] JOHN: 10/18/12- SUBM DR: Ulices Becerra MD REQ: [id number] RECD: 10/18/120 STATUS: SOUT _ ORDERED: LEVEL III FINAL DIAGNOSIS Knee, left, shavings: A. Fragments of hyperplastic synovium with neovascularization, chronic inflammation and myxoid change. B. Fragments of fibrocartilage with myxoid degeneration. PRE-OPERATIVE DIAGNOSIS Left knee pain GROSS DESCRIPTION The specimen is received in formalin labeled Reba Blanca, Arthroscopic Shavings Left Knee, and consists of a 7.5 x 3.0 x 1.5 cm. aggregate of yellow and white tissue fragments. Sampler Pickup sections, one cassette. Signed (signature on file) Jm Salamanca MD 1407 END OF REPORT * ML=Testing performed at Main Lab DEPARTMENT OF PATHOLOGY, [address] [place] [address] Jm Salamanca M.D. Director [facility] Permit #[id number] Procedures Date Code Description Status 12/18/2018 45344 EKG Tracing & Interpretation Completed 11/29/2018 23840188 Colonoscopy Completed 12/14/2017 01414 Arthroscopy,Knee,Meniscectomy Medial Or Lateral Completed 12/14/2017 98160 Arthroscopy,Knee,Meniscectomy Media & Lateral Completed 12/14/2017 02850 Arthroscopy,Knee,Meniscectomy Media & Lateral Completed 12/14/2017 52177 Arthroscopy,Knee,Meniscectomy Media & Lateral Completed 12/14/2017 72240 Arthroscopy,Knee,Meniscectomy Media & Lateral Completed 08/08/2017 72741 Inject/Drain Joint/Bursa Major W/O US Completed 10/18/2012 74367 Arthroscopy,Knee,Meniscectomy Medial Or Lateral Completed 10/18/2012 29405 Arthroscopy,Knee,Meniscectomy Medial Or Lateral Completed Encounters Type Date Location Provider Dx Diagnosis Office Visit 12/18/2018 [facility] Reba Betancourt Z01.810 Encounter for 10:00a Of Maryann Pérez DO [facility] preprocedural cardiovascular examination K57.92 Dvtrcli of intest, part unsp, w/o perf or abscess w/o bleed Z68.35 Body mass index (BMI) 35.0-35.9, adult E66.8 Other obesity E78.5 Hyperlipidemia, unspecified Z82.49 Family hx of ischem heart dis and oth dis of the circ sys Z90.5 Acquired absence of kidney Office Visit 12/03/2018 2:30p Surgical Reba Fischer K57.20 Dvtrcli of lg int [facility] Maryann Bennett MD, w perforation and FACS abscess w/o bleeding E66.8 Other obesity Office Visit 10/03/2018 3:15p Peyman Fischer K57.20 Dvtrcli of lg int [facility] Maryann Bennett MD w perforation and FACS abscess w/o bleeding E66.8 Other obesity Office Visit 09/26/2018 Surgical Reba Bennett K57.20 Dvtrcli of lg int 11:30a [facility] Maryann BASILIO FACS w perforation and abscess w/o bleeding Office Visit 09/24/2018 [facility] García K57.80 Dvtrcli of 8:29a Assoc,nick Urrutia MD intest, part Hospitalists unsp, w perf and abscess w/o bleed M79.604 Pain in right leg M79.605 Pain in left leg Office Visit 09/24/2018 Surgical Joellen Zuleta MD K57.20 Dvtrcli of lg int 7:00a [facility] w perforation and abscess w/o bleeding [facility] K57.92 [facility] of 8:28a nick Gan MD intest, part Hospitalists unsp, w/o perf or abscess w/o bleed M79.605 Pain in left leg R19.5 Other fecal abnormalities Office Visit 09/23/2018 Surgical Joellen Zuleta MD K57.20 Dvtrcli of lg int 7:00a [facility] w perforation and abscess w/o bleeding [facility] K[facility].92 [facility] of 8:28a nick Gan MD intest, part Hospitalists unsp, w/o perf or abscess w/o bleed R19.5 Other fecal abnormalities Office Visit 2018 Surgical Dash Leon K57.20 Dvtrcli of lg int 7:00a [facility]ann Nguyen M.D. w perforation and abscess w/o bleeding Office Visit 09/21[facility]2018 [facility] K57.92 Dvtrcli of 8:27a nick Gan MD intest, part Hospitalists unsp, w/o perf or abscess w/o bleed R19.5 Other fecal abnormalities Office Visit 09/21/2018 7:00a Surgical Joellen Zuleta K57.20 Dvtrcli of lg int [facility] w perforation and abscess w/o bleeding Office Visit 09/21/2018 7:00a Surgical Dash Leon K57.20 Dvtrcli of lg int [facility] Nguyen M.D. w perforation and abscess w/o bleeding Office Visit 09/20/2018 8:26a [facility] Barbara K57.20 Dvtrcli of lg int Assoc,nick Ruiz PA-C w perforation and Hospitalists abscess w/o bleeding R19.5 Other fecal abnormalities Office Visit 09/20/2018 Surgical Jose Manuel Perales K57.20 Dvtrcli of lg 7:00a [facility] JAI Armenta w perforation and abscess w/o bleeding Office Visit 09/14/2018 [facility] Coar Boucher N.P. K57.32 Dvtrcli of lg 10:46a Assoc,pc int w/o Hospitalists perforation or abscess w/o bleeding K92.1 Melena Office Visit 09/13/2018 10:46a [facility] Barbara K57.92 Dvtrcli of Assoc,pc O'jose, PA-C intest, part Hospitalists unsp, w/o perf or abscess w/o bleed M25.442 Effusion, left hand K92.1 Melena Office Visit 09/12/2018 10:45a [facility] Barbara K57.92 Dvtrcli of Assoc,pc O'jose, PA-C intest, part Hospitalists unsp, w/o perf or abscess w/o bleed E03.9 Hypothyroidism, unspecified Office Visit 09/11/2018 10:45a [facility] Vanesa K57.32 Dvtrcli of lg int Assoc,pc Rooth, DO w/o perforation Hospitalists or abscess w/o bleeding Z90.5 Acquired absence of kidney Office Visit 08/19/2018 11:00a Orthopedic Services Missy Hernández, M25.552 Pain in left Of C.M.A. M.D. hip M16.12 Unilateral primary osteoarthritis, left hip M54.5 Low back pain Office Visit 12/04/2017 DO Not Use Care Ambrosio Springer, Z01.810 Encounter for 2:30p Sherley BASILIO preprocedural [facility] cardiovascular examination E66.3 Overweight M25.561 Pain in right knee Office Visit 11/19/2017 2:15p Orthopedic Jesus Barrios S83.241D Oth tear of Services Of MD Daniele medial C.M.A. meniscus, current injury, r knee, subs S83.241D Oth tear of medial meniscus, current injury, r knee, subs Office Visit 09/20/2017 2:00p Orthopedic Jesus Barrios S83.241D Oth tear of Services Of MD Daniele medial C.M.A. meniscus, current injury, r knee, subs M25.561 Pain in right knee Office Visit 08/08/2017 2:45p Cayetano Barrios S83.241D Oth tear of Services Of MD Daniele medial C.M.A. meniscus, current injury, r knee, subs M25.561 Pain in right knee S83.241A Oth tear of medial meniscus, current injury, r knee, init Office Visit 08/02/2017 8:45a Orthopedic Jesus F M25.561 Pain in Services Of Magen Sanabria MD right knee M23.41 Loose body in knee, right knee M25.461 Effusion, right knee [facility] J18.9 Pneumonia, 12:15p Assoc,nick Self unspecified Hospitalists organism E03.9 Hypothyroidism, unspecified E78.5 Hyperlipidemia, unspecified Office Visit 02/29/2016 [facility] Candi Fraga18.9 Pneumonia, 12:14p Assoc,nick Self unspecified Hospitalists organism E03.9 Hypothyroidism, unspecified E78.5 Hyperlipidemia, unspecified Office Visit 02/28/2016 [facility] Candi Fraga18.9 Pneumonia, 12:14p Assoc,nick Self unspecified Hospitalists organism E03.9 Hypothyroidism, unspecified E78.5 Hyperlipidemia, unspecified Office Visit 02/27/2016 [facility] César J18.9 Pneumonia, 12:13p Assoc,pc Pranay, N.P. unspecified Hospitalists organism E78.5 Hyperlipidemia, unspecified E03.9 Hypothyroidism, unspecified Office Visit 10/23/2013 8:15a Cayetano Becerra 844.8 Sprains & Services Of Magen Self Strains Knee & Leg Other Spec Sites Office Visit 10/08/2012 11:45a Cayetano Becerra, 719.06 Effusion Joint Services Of Magen Self Lower Leg Office Visit 10/01/2012 2:15p Cayetano Becerra 844.8 Sprains & Services Of Magen Self Strains Knee & Leg Other Spec Sites Office Visit 09/13/2012 10:00a Gunnar Lester4.8 Sprains & Services Of Magen Self Strains Knee & Leg Other Spec Sites Office Visit 09/03/2012 1:30p Ame Lester.8 Sprains & Services Of Magen Self Strains Knee & Leg Other Spec Sites Plan of Treatment Future Appointment(s):01/22/2019 9:00 am - Montse Reyes NP at [facility]01/22/2019 9:00 am - Reba Bennett MD, FACS at [facility]12/31/2018 - Montse Reyes, NPK57.92 Diverticulitis of intestine, part unspecified, without auwymL82.818 Encounter for other preprocedural examination
[2019-01-22] MEDS ORDERED: fentaNYL* 50 MCG/ML 2 ML VIAL (100 MCG VIAL) ONE (18:29)
[2019-01-22] MEDS: fentaNYL* 50 MCG/ML 2 ML VIAL (100 MCG VIAL) IV PRN ×2 (18:30→18:36)
[2019-01-22] MEDS ORDERED: Naloxone* 0.4 MG/ML 1 ML VIAL IV PUSH PRN (18:49)
[2019-01-22] MEDS ORDERED: Acetaminophen TAB* 325 MG PO PRN (18:49)
[2019-01-22] MEDS ORDERED: HYDROmorphone PCA* 20 MG/20 ML PCA.SYRING PCA SCH (19:00)
[2019-01-22] MEDS: Heparin VIAL(*) 5000 UNITS/ML VIAL (FIVE THOUSAND) SUBCUT SCH (21:42)
--- NOTE | 2019-01-23 00:12 | PN ---
Progress Note - Progress Note Date of Service: 01/23/19 Note: The patient is very numb from his epidural and has weak legs. He can move them, but is weak. No pain. We will need the patient to begin ambulating. I instructed his RN to turn off the epidural until his pain or strength returned. VSS, Awake and alert. Mild sore throat.
--- NOTE | 2019-01-23 01:11 | OP ---
CC: Dr. Sim Gresham; Dr. Onofre Pérez; Dr. Chapincito Baltazar * DATE OF OPERATION: 01/22/19 - ROOM #347 DATE OF : 60 SURGEON: Onofre Bennett MD ASSISTANTS: 1. JAI Marshall. 2. JAI student, Giovany. ANESTHESIOLOGIST: Dr. King. ANESTHESIA: General anesthesia and epidural. PRE-OP DIAGNOSIS: Recurrent complicated diverticulitis. POST-OP DIAGNOSIS: Recurrent complicated diverticulitis. OPERATIVE PROCEDURE: Laparoscopic-assisted sigmoid colectomy. ESTIMATED BLOOD LOSS: Less than 100 cc. IV FLUIDS: 5000. Please see report for additional details. SPECIMENS: Sigmoid colon. DRAINS: Villasenor, 400 cc. DESCRIPTION OF PROCEDURE: The patient was identified in the preoperative area, discussed the case and consent was signed for laparoscopic-assisted sigmoid colectomy. The patient was marked. He was taken to the operating room, placed on the operating table in supine position. Preoperative antibiotics were given. Sequential devices were placed on bilateral lower extremities. An epidural catheter had been placed. Please see separate report for details. General anesthesia was induced. The patient's abdomen was clipped off hair. A Villasenor catheter was inserted. He was placed in the table in split leg position and we dilated his anus to 2 fingerbreadths. No lesions were palpable. There was no stool. A 20 Tongan Villasenor catheter was inserted and the balloon inflated. We then flushed Betadine flush into the rectum and this fluid was drained with ease. Next, the patient was prepped and draped in a standard surgical fashion. A time - out was performed. Folds of the umbilicus were elevated anteriorly and a Veress needle inserted into the abdominal cavity, which was then allowed to insufflate to a pressure of 15 mmHg. The patient tolerated the insufflation well. Superior to the umbilicus, a 12-mm optical trocar was inserted. Laparoscope was then inserted through this. The Veress needle was removed and there was no evidence of injury from the trocar insertion or from the Veress needle. In addition, a review of the abdomen showed no free fluid. The small bowel appeared intact. There were no significant adhesions. Additional trocars were then placed in the following position: A 12 mm in the right lower quadrant and a 5 mm in the suprapubic area and a 5 mm in the left lower quadrant. Attention was turned to the pelvis. The table was placed in a Trendelenburg position. The sigmoid colon was lifted up out of the pelvis. There were some minimal adhesions that were taken down with sharp dissection with scissors and stiff woody sigmoid colon was lifted up out of the pelvis and reviewed our areas that would become our distal transection point as the teniae rectum. The sigmoid colon was lifted anteriorly and the right portion of the sigmoid mesentery was cauterized down to the pelvic rim. We could see the retroperitoneal vessels, but I did not look for ureter as the patient was status post left nephrectomy. Attention was turned laterally. Dissection was carried out at this site where there were some attachments to the iliac fossa on the left. These were taken down with sharp and blunt dissection. We carried our dissection superiorly toward the splenic flexure. We reviewed the sigmoid colon along the way, saw diverticula up at the area of descending colon. We knew we would need fair amount of transection and for this reason, we knew we had to take the splenic flexure. Splenic flexure was taken with cautery reflecting the descending colon medially and both sharp and blunt dissection carried out to the spleen. We could not turn the corner completely and free this up until we could identify about the transverse colon. Attention was turned towards transverse colon. The omentum was attached to this , adhered to the proximal descending colon and LigaSure was used to open up the spleen so we could better see this portion of the colon. Once this omentum could be reflected superiorly, with traction inferiorly on the transverse and descending colon, we came around the corner of the splenic flexure, where now we could fully mobilize the colon towards the pelvis. Attention was then returned to the distal sigmoid. A window was made just at the area of the sigmoid rectum. LigaSure was used to take some of the mesorectum taken care not to violate the retroperitoneum. A 60-mm purple GI stapler was fired across the rectum, which retracted back into the deep pelvis. We then took the sigmoid mesentery staying relatively close to the sigmoid colon and utilized a 45-mm white GI stapler across the sigmoid vessels. This allowed us the opportunity to now feel that we had full mobilization. We clamped the colon staple line and then converted to a minilaparotomy opening up the incision at the supraumbilical site extending this inferiorly and gaining access to the abdomen. We placed an Car wound protector and brought the colon out through this incision. Review of colon showed that it was intact and we found our previous diverticula on the descending colon and this will be our distal margin. We cleared the pericolonic fat at the site where we would place our pursestring suture. Once this was cleared off, we placed the pursestring suture. Used 3-0 Monocryl suture for pursestring and then cut this vessel and then passed it off. We sized up the colon, which reviewed and noted that there was no bleeding and no tic, no diverticular disease. It would easily encompass 31-mm stapler and we utilized 31-mm, 4.8-mm length stapler. The anvil was placed intact in the appropriate fashion and the pursestring suture tied snugly. Next, we dropped this back into the abdomen. Car protector was removed. We reviewed the left paracolic gutter and there appeared to be no bleeding. We then closed the anterior fascia with interrupted #1 Vicryl sutures leaving a space for the 10-mm port to be replaced. The abdomen was allowed to insufflate. We placed the scope in the abdomen. We suctioned up some bleeding that had been noted. I could not identify any active bleeding. The anvil connected the descending colon. We easily made it down to the pelvis. Next, we performed the anastomosis with the EA stapler through the rectum, coming out just at the staple line. We made it and created the anastomosis which was then tested by clamping the bowel proximally and doing an air test under water. Bowel test was negative. Saline was suctioned out and we reviewed the full colon. It did not show any twisting. We then put the patient back into a neutral position. A 12-mm trocar at the right lower quadrant was reapproximated at the fascial layer with a 0 Polysorb suture using a Weck closure device. The abdomen was then allowed to collapse. Trocars were removed under direct vision and the midline incision was then sutured after we took the trocar out. We irrigated the wound and then reapproximated all incisions with skin zee. Sterile dressing was applied. The patient tolerated the procedure well and was then transferred to PACU in stable condition. [id number]/CPS #: [id number] MTDBreanne
[2019-01-23] MEDS: Levothyroxine INJ* 100 MCG/5 ML VIAL IV SCH (05:22)
[2019-01-23] MEDS: Heparin VIAL(*) 5000 UNITS/ML VIAL (FIVE THOUSAND) SUBCUT SCH ×3 (05:23→21:14)
[2019-01-23] MEDS: Lactated Ringers 1000 ML Bag* 1,000 ML IV SCH ×2 (05:28→15:35)
[2019-01-23 06:03] LABS: ABS Lymphocytes 0.8 10^3/ul (1.0-4.8); ABS Monocytes 0.7 10^3/ul (0-0.8); ABS Neutrophils 8.3 10^3/ul (1.5-7.7); Hematocrit 41 % (42-52); Hemoglobin 13.8 g/dL (14.0-18.0); Lymphocyte % 8.5 %; Mean Corpuscular HGB Conc 34 g/dL (31-36); Mean Corpuscular Hemoglobin 27 pg (27-31); Mean Corpuscular Volume 81 fL (80-94); Mean Platelet Volume 8.5 fL (7.4-10.4); Nucleated Red Blood Cells % 0.1; Platelet Count 197 10^3/uL (150-450); Red Blood Count 5.08 10^6 /uL (4.18-5.48); Red Cell Distribution Width 15 % (10-15); White Blood Count 9.8 10^3/uL (3.5-10.8)
[2019-01-23 06:28] LABS: BUN/Creatinine Ratio 10.8 (8-20); Calcium 8.8 mg/dL (8.6-10.3); EGFR African American 115.1 (>60); EGFR Non-African American 95.2 (>60); Potassium 4.2 mmol/L (3.5-5.0)
--- NOTE | 2019-01-23 09:40 | PN ---
Progress Note - Progress Note Date of Service: 01/23/19 Note: Patient had return of leg strength and had epidural restarted as his pain increased. He's ambulating. VSS. He complains of his left thumb being numb. I am unsure what this is. Sometimes patients will get transient CTS from perioperative fluids, his pointer finger is always numb from an old injury, so this is hard to tell if it is indeed CTS. Doing well pain gomes, will continue epidural until surgeons request D/C.
--- NOTE | 2019-01-23 10:02 | PN ---
Progress Note - Progress Note Date of Service: 01/23/19 SOAP: Subjective: Pt seen and examined. DOing well. no nausea. some burping. we ambulated the floor together[] Objective: Temp Pulse Resp BP Pulse Ox 98.4 F 89 18 104/68 98 01/23/19 07:12 01/23/19 07:12 01/23/19 09:40 01/23/19 07:12 01/23/19 09:40 Intake & Output 01/22/19 01/23/19 01/23/19 22:59 06:59 14:59 Intake Total 5500 990 Output Total 700 750 Balance 4800 240 a and o x3, nad lungs clear abdo: soft/ distended/ tender dressing intact ext wnl labs reviewed Assessment: POD 1 lap sigmoid colectomy Plan: d/c lucas strict i o no labs in am ice wean O2
[2019-01-24] MEDS: Levothyroxine INJ* 100 MCG/5 ML VIAL IV SCH (05:16)
[2019-01-24] MEDS: Heparin VIAL(*) 5000 UNITS/ML VIAL (FIVE THOUSAND) SUBCUT SCH ×3 (05:17→22:43)
[2019-01-24 06:02] LABS: ABS Lymphocytes 1.3 10^3/ul (1.0-4.8); ABS Monocytes 0.7 10^3/ul (0-0.8); ABS Neutrophils 6.7 10^3/ul (1.5-7.7); Eosinophil % 0.1 %; Hematocrit 40 % (42-52); Hemoglobin 13.7 g/dL (14.0-18.0); Lymphocyte % 14.5 %; Mean Corpuscular HGB Conc 34 g/dL (31-36); Mean Corpuscular Hemoglobin 28 pg (27-31); Mean Corpuscular Volume 81 fL (80-94); Mean Platelet Volume 8.4 fL (7.4-10.4); Platelet Count 172 10^3/uL (150-450); Red Blood Count 4.92 10^6 /uL (4.18-5.48); Red Cell Distribution Width 15 % (10-15); White Blood Count 8.8 10^3/uL (3.5-10.8)
[2019-01-24 06:14] LABS: Calcium 8.7 mg/dL (8.6-10.3); Magnesium 1.5 mg/dL (1.9-2.7); Potassium 3.8 mmol/L (3.5-5.0)
[2019-01-24 06:20] LABS: BUN/Creatinine Ratio 10.3 (8-20); EGFR African American 109.1 (>60); EGFR Non-African American 90.1 (>60); Phosphorus 2.9 mg/dL (2.5-5.0)
[2019-01-24] MEDS: Lactated Ringers 1000 ML Bag* 1,000 ML IV SCH (08:26)
--- NOTE | 2019-01-24 11:41 | PN ---
Progress Note - Progress Note Date of Service: 01/24/19 Note: Pt doing well today. Dr Bennett requested D/C epidural. I pulled epidural, tip intact.Site was clean, no sign infection.
[2019-01-24] MEDS ORDERED: Potassium Phosphate IV* 15 MMOLE in NS 0.9% 250 ML* 250 ML IVPB ONE (11:49)
[2019-01-24] MEDS ORDERED: Magnesium Sulfate 1 GM IV* 1 GM/100 ML BAG IV ONE (11:49)
[2019-01-24] MEDS: D5W 1/2 NS KCl 20 Meq 1000 ML* 1,000 ML IV SCH (12:15)
[2019-01-24] MEDS: Ketorolac INJ* 30 MG/ML 1 ML VIAL IV PUSH SCH ×2 (13:27→20:24)
[2019-01-24] MEDS: Ondansetron INJ* 2 MG/ML VIAL IV PRN (20:20)
[2019-01-25] MEDS: D5W 1/2 NS KCl 20 Meq 1000 ML* 1,000 ML IV SCH ×3 (00:32→21:58)
[2019-01-25] MEDS: Ketorolac INJ* 30 MG/ML 1 ML VIAL IV PUSH SCH ×4 (00:58→19:29)
[2019-01-25] MEDS: Ondansetron INJ* 2 MG/ML VIAL IV PRN ×3 (00:59→10:16)
[2019-01-25] MEDS: Levothyroxine INJ* 100 MCG/5 ML VIAL IV SCH (05:36)
[2019-01-25] MEDS: Heparin VIAL(*) 5000 UNITS/ML VIAL (FIVE THOUSAND) SUBCUT SCH ×3 (05:37→21:31)
[2019-01-25] MEDS ORDERED: Scopolamine PATCH Remove* 1 NOTE MISC PATCH OFF ONE (06:00)
--- NOTE | 2019-01-25 11:18 | PN ---
Progress Note - Progress Note Date of Service: 01/25/19 Note: Surgery Progress Note S: Patient is having flatus and had BM this morning (soft/liquid). He is continuing to have some burping and complains of feeling bloated. 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 He has been walking very well. O: Vital Signs - 24 hr 01/24/19 01/24/19 01/24/19 13:00 15:25 19:16 Temperature 98.6 F 99.1 F Pulse Rate 81 88 Respiratory 18 18 18 Rate Blood Pressure 124/76 138/81 (mmHg) O2 Sat by Pulse 95 98 99 Oximetry 01/24/19 01/24/19 01/24/19 20:24 20:37 20:49 Temperature Pulse Rate Respiratory 16 18 Rate Blood Pressure (mmHg) O2 Sat by Pulse 96 96 Oximetry 01/24/19 01/24/19 01/25/19 23:00 23:28 01:00 Temperature 98.2 F Pulse Rate 69 Respiratory 18 18 16 Rate Blood Pressure 129/69 (mmHg) O2 Sat by Pulse 99 99 96 Oximetry 01/25/19 01/25/19 01/25/19 03:00 03:06 05:18 Temperature 97.8 F Pulse Rate 84 Respiratory 16 18 16 Rate Blood Pressure 152/81 (mmHg) O2 Sat by Pulse 96 96 95 Oximetry 01/25/19 01/25/19 01/25/19 07:00 08:00 08:20 Temperature 98.5 F Pulse Rate 73 Respiratory 18 18 16 Rate Blood Pressure 132/85 (mmHg) O2 Sat by Pulse 97 98 Oximetry 01/25/19 09:00 Temperature Pulse Rate Respiratory 18 Rate Blood Pressure (mmHg) O2 Sat by Pulse 97 Oximetry Intake & Output 01/24/19 01/25/19 01/25/19 22:59 06:59 14:59 Intake Total 60 1115 Output Total 450 1100 Balance -390 15 Intake: IV Fluids 875 D5W 1/2 NS 20 meq KCL 875 Oral 60 240 Output: Lucas 450 1100 Other: Date of Last Bowel 01/25/2019 Movement Estimated Stool Amount Small Physical exam: Abdomen- obese, moderately distended, incisions c/d/i, no erythema or drainage Lucas catheter in place A/P: 58 M POD 3 from lap sigmoid colectomy. - Continue CLD given patient's complaints of bloating and distension. He says he is taking minimal liquids and doesn't have much appetite. Will possibly advance tomorrow. 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 I advised patient that if he failed TOV then he would have to have a lucas for a longer period of time, given this is his second attempt. - Re-check electrolytes tomorrow
[2019-01-25] MEDS: PROCHLORPERAZINE INJ 5 MG/ML 2 ML VIAL IV PRN ×2 (11:56→18:04)
[2019-01-25] MEDS ORDERED: Famotidine TAB* 20 MG PO PRN (18:30)
[2019-01-26] MEDS: Ketorolac INJ* 30 MG/ML 1 ML VIAL IV PUSH SCH ×4 (01:00→20:00)
[2019-01-26] MEDS: Heparin VIAL(*) 5000 UNITS/ML VIAL (FIVE THOUSAND) SUBCUT SCH ×3 (05:53→22:39)
[2019-01-26] MEDS: Levothyroxine INJ* 100 MCG/5 ML VIAL IV SCH (05:53)
[2019-01-26] MEDS: D5W 1/2 NS KCl 20 Meq 1000 ML* 1,000 ML IV SCH (07:26)
[2019-01-26 07:50] LABS: BUN/Creatinine Ratio 6.5 (8-20); Calcium 8.4 mg/dL (8.6-10.3); EGFR African American 102.2 (>60); EGFR Non-African American 84.5 (>60); Magnesium 1.8 mg/dL (1.9-2.7); Potassium 3.9 mmol/L (3.5-5.0)
[2019-01-26] MEDS ORDERED: Magnesium Oxide TAB* 400 MG PO ONE (12:22)
--- NOTE | 2019-01-26 12:29 | PN ---
Progress Note - Progress Note Date of Service: 01/26/19 Note: Surgery Progress Note S: Patient feels much better today. He continues to have a large amount of gas , and has watery BM. He is tolerating CLD better. He has minimal pain. He continues to ambulate regularly. He passed a TOV yesterday. O: Vital Signs: Temp Pulse Resp BP Pulse Ox 98.4 F 60 20 128/75 98 01/26/19 08:00 01/26/19 08:00 01/26/19 08:00 01/26/19 08:00 01/26/19 08:00 Laboratory Results - last 24 hr 01/26/19 07:29 Sodium 138 Potassium 3.9 Chloride 106 Carbon Dioxide 26 Anion Gap 6 BUN 6 Creatinine 0.92 Est GFR ( Amer) 102.2 Est GFR (Non-Af Amer) 84.5 BUN/Creatinine Ratio 6.5 L Glucose 121 H Calcium 8.4 L Phosphorus 3.0 Magnesium 1.8 L Intake & Output 01/25/19 01/26/19 01/26/19 22:59 06:59 14:59 Intake Total 1230 120 940 Output Total 800 600 Balance 430 -480 940 Intake: IV Fluids 990 940 D5W 1/2 NS 20 meq KCL 990 940 Oral 240 120 Output: Urine 800 600 Other: Date of Last Bowel 01/26/2019 Movement # Bowel Movements 2 1 Estimated Stool Amount Small Small Physical exam: Abd- soft, minimally tender, incision c/d/i, zee in place, no erythema or drainage A/P: 58 M POD 4 from lap sigmoidectomy for complicated diverticulitis, doing well. - Soft diet - Saline lock IV fluids - Magnesium PO for electrolyte replacement - Patient can shower - Likely DC home tomorrow
[2019-01-27] MEDS: Ketorolac INJ* 30 MG/ML 1 ML VIAL IV PUSH SCH ×2 (02:20→07:13)
[2019-01-27] MEDS: Levothyroxine INJ* 100 MCG/5 ML VIAL IV SCH (05:55)
[2019-01-27] MEDS: Heparin VIAL(*) 5000 UNITS/ML VIAL (FIVE THOUSAND) SUBCUT SCH (05:58)
[2019-01-27 08:03] VITALS: BP 131/74
[2019-01-27] MEDS ORDERED: Magnesium Oxide TAB* 400 MG PO ONE (09:04)
--- NOTE | 2019-01-27 09:15 | PN ---
Progress Note - Progress Note Date of Service: 01/27/19 SOAP: Subjective:feels well;tolerating solids;minimal pain;wants to go home [] Objective: Vital Signs Temp 98.5 F 01/27/19 08:02 Pulse 59 01/27/19 08:02 Resp 14 01/27/19 08:02 BP 131/74 01/27/19 08:02 Pulse Ox 97 01/27/19 08:02 Intake & Output 01/26/19 01/27/19 01/27/19 18:59 06:59 18:59 Intake Total 2205 560 Output Total 900 Balance 1305 560 Intake: IV Fluids 1485 D5W 1/2 NS 20 meq KCL 1485 Oral 720 560 Output: Urine 900 Other: Estimated Void Medium # Voids 2 lungs:clear bilat;heart:RRR;abd:+bs,soft;incision C/D/I with zee,no erythema or drainage;ext:nontender calves,no edema;Magnesium 1.8 yesterday and received 1 dose of MagOx 800mg po [] Assessment:POD#5 s/p lap sigmoid colectomy,condition stable,ready for discharge [] Plan:discharge home today;instructions reviewed MagOx 800mg po before discharge low residue diet print out given to pt office visit 02/06/19 at 10:15 []
--- NOTE | 2019-01-27 20:58 | DS ---
CC: Primary Care Doctor; [facility] DISCHARGE SUMMARY: DATE OF ADMISSION: DATE OF DISCHARGE: 01/27/19 HOSPITAL COURSE: Mr. Stoll is a 58-year-old gentleman with history of recurrent complicated divert iculitis. The patient was admitted on the same day of surgery and underwent a laparoscopic sigmoid colectomy. Please see operative report for full details. Pathology consistent with diverticulosis and chronic serositis. The patient's postoperative course is uneventful. With regards to diet, he was placed on ice chips i mmediately and advanced slowly. The patient did have obstructive uropathy that required reinsertion of Villasenor after it was removed on postoperative day 1. This was a concern as the patient is status po st left nephrectomy. He had the Villasenor catheter removed second time and he was able to void on his ow n. On the day of discharge, the patient was evaluated. He had no complaints other than mild abdominal p ain. He had been passing gas and having loose bowel movements. Denied any nausea or vomiting. His appetite was improving. PHYSICAL EXAMINATION: He is afebrile. Vital signs are stable. Alert and oriented x3, in no apparen t distress. Head, Ears, Eyes, Nose, and Throat: Normocephalic, atraumatic. Sclerae anicteric. Muc ous membranes are moist. Lungs: Clear to auscultation bilaterally. Abdomen: Soft, distended, nont fuad. Skin zee intact with no erythema or ecchymosis. Extremities within normal limits. IMPRESSION AND PLAN: Postop day 5 from laparoscopic sigmoid colectomy. Pathology reviewed with the patient. Plan is to discharge home. The patient is stable and for planned discharge home on a low-residue diet. Instruction sheet given t o him. No additional narcotics were given. The patient can take ibuprofen as needed and he will fol low up in our offices for staple removal in the near future. I discussed with the patient the possibility of worsening abdominal pain or fevers and to contact our office should this occur. [id number]/[facility] #: [id number]
== END 2019-01-27 11:00 | disposition home or self-care (01) | DRG 331 ==
LOC: AA 09:32 → SSU 19:13
PROVIDERS: ADMIT Surgery; ATTEND Surgery
PROC: 0DBN0ZZ Excision of Sigmoid Colon, Open Approach (ICD-10-PCS; principal; 2019-01-22 11:30)
DX: K57.32 Diverticulitis of large intestine without perforation or abscess without bleeding (principal); E66.9 Obesity, unspecified; E03.9 Hypothyroidism, unspecified; E78.5 Hyperlipidemia, unspecified; G89.29 Other chronic pain; M54.30 Sciatica, unspecified side; R14.0 Abdominal distension (gaseous); R11.0 Nausea; J45.909 Unspecified asthma, uncomplicated; Z90.5 Acquired absence of kidney; Z82.49 Family history of ischemic heart disease and other diseases of the circulatory system; Z80.9 Family history of malignant neoplasm, unspecified; Z81.2 Family history of tobacco abuse and dependence; Z68.33 Body mass index [BMI] 33.0-33.9, adult; Z87.442 Personal history of urinary calculi; Z72.89 Other problems related to lifestyle; Z87.891 Personal history of nicotine dependence
CPT/HCPCS: 36415; 80048; 83735; 84100; 85025; 88307; A9270-GY; C1776; J0780; J1170; J1335; J1644; J1885; J2250; J2405; J2704; J2710; J2795; J3010; J3475; J3490; J8540

== ENCOUNTER 2022-06-13 06:47 | Observation (INO) ==
[~2022-06-13 06:47] MED LIST changes: +Buffered Lidocaine 1% SYRIN 1 ml INTRADERM ONE; -Buffered Lidocaine 1% SYRIN* 1 ML/SYRINGE INTRADERM ONE; -Dexamethasone TAB* 4 MG PO ONE; -DiMENhydriNATE IV* 50 MG/ML VIAL IV PUSH PRN; -ERTApenem(*) 1 GM in NS 0.9% 50 ML* 50 ML IVPB SCH; -Famotidine IV* 10 MG/ML 2 ML (20 mg) IV ONE; -HYDROmorphone INJ1* 1 MG/ML SYRINGE IV PRN; -Lactated Ringers 1000 ML Bag* 1,000 ML IV SCH; +Lactated Ringers 1000 ml BAG 1,000 ML IV SCH; -Naloxone* 0.4 MG/ML 1 ML VIAL IV PRN; -Ondansetron ODT TAB* 4 MG PO ONE; -PROCHLORPERAZINE INJ 5 MG/ML 2 ML VIAL IV PRN; -Scopolamine 1.5 mg* PATCH TRANSDERM ONE
[2022-06-13] MEDS ORDERED: ceFAZolin 2 GM in NS PREMIX 2 GM/100 ML BAG IVPB ONE (07:41)
[2022-06-13] MEDS ORDERED: ROPIVACAINE 5 MG/ML 30 ML BTL (0.5%) ONE ×2 (08:41→08:47)
[2022-06-13] MEDS ORDERED: fentaNYL 100 mcg/2 ml 50 MCG/ML VIAL ONE (08:47)
[2022-06-13] MEDS ORDERED: Midazolam 2 mg/2 ml VIAL 1 mg/ml 2 ml VIAL (2 mg) ONE ×2 (08:47→09:32)
[2022-06-13] MEDS ORDERED: Lidocaine 2% PF 5 ML VIAL ONE (09:01)
[2022-06-13] MEDS ORDERED: Phenylephrine IV 10 MG/ML 1 ml VIAL ONE (09:02)
[2022-06-13] MEDS ORDERED: Propofol 10 mg/ml 100 ML BTL 2,000 MG/200 ML BTL ONE (09:08)
[2022-06-13] MEDS ORDERED: Naloxone 0.4 mg VIAL 0.4 mg/ml 1 ml VIAL IV PRN (09:26)
[2022-06-13] MEDS ORDERED: HYDROmorphone 1 MG/1 ML SYRINGE IV PRN (09:26)
[2022-06-13] MEDS ORDERED: fentaNYL 100 mcg/2 ml 50 MCG/ML VIAL IV PRN (09:26)
[2022-06-13] MEDS ORDERED: Ondansetron 4 mg VIAL 2 MG/ML 2 ml VIAL IV PRN ×2 (09:26→10:12)
[2022-06-13] MEDS ORDERED: Dexamethasone IV 4 MG/ML VIAL 1 ml VIAL ONE (09:52)
[2022-06-13] MEDS ORDERED: Ondansetron 4 mg VIAL 2 MG/ML 2 ml VIAL ONE (09:52)
[2022-06-13] MEDS ORDERED: Magnesium Hydroxide LIQ 30 ML UDC PO PRN (10:12)
[2022-06-13] MEDS ORDERED: Lactulose 30 ml UDC PO PRN (10:12)
[2022-06-13] MEDS ORDERED: Ondansetron ODT 4 mg TAB 4 MG TAB PO PRN (10:12)
[2022-06-13] MEDS ORDERED: Morphine 2 MG/ML SYRINGE IV PRN (10:12)
[2022-06-13] MEDS: Lactated Ringers 1000 ml BAG 1,000 ML IV SCH (13:48)
[2022-06-13] MEDS: ceFAZolin 1 GM ADVAN 1 GM in NS 0.9% 50 ML 50 ML IVPB SCH (17:20)
[2022-06-13] MEDS: Magnesium Hydroxide LIQ 30 ML UDC PO SCH (21:26)
[2022-06-14] MEDS: Lactated Ringers 1000 ml BAG 1,000 ML IV SCH (00:38)
[2022-06-14] MEDS: ceFAZolin 1 GM ADVAN 1 GM in NS 0.9% 50 ML 50 ML IVPB SCH ×3 (01:55→10:02)
[2022-06-14 06:26] LABS: Hematocrit 39 % (42-52); Hemoglobin 12.8 g/dL (14.0-18.0); Mean Platelet Volume 8.1 fL (7.4-10.4); Platelet Count 226 10^3/uL (150-450)
[2022-06-14 07:19] LABS: Calcium 8.1 mg/dL (8.6-10.3); Potassium 4.6 mmol/L (3.5-5.0)
[2022-06-14 07:25] LABS: eGFR CKD-EPI 92.2 (>60)
[2022-06-14] MEDS ORDERED: Vitamin THERAPEUTIC TAB PO SCH (09:00)
[2022-06-14] MEDS: Magnesium Hydroxide LIQ 30 ML UDC PO SCH (09:28)
[2022-06-14 11:16] VITALS: BP 137/70
== END 2022-06-14 13:15 | disposition home or self-care (01) ==
LOC: SSU 06:47 → OR 06:47
PROVIDERS: ADMIT Orthopaedic Surgery Adult Reconstructive Orthopaedic Surgery; ATTEND Orthopaedic Surgery Adult Reconstructive Orthopaedic Surgery